=== PATIENT | female | born 1985 | race Hispanic/Latino ===

== ENCOUNTER 2020-07-25 17:10 | Emergency (ER) | payer MEDICAID ==
[2020-07-25 19:08] VITALS: BP 127/90
--- NOTE | 2020-07-25 19:39 | XRay Report ---
RIGHT ANKLE 3 VIEWS INDICATION: lateral right ankle injury, hx of previous fracture. COMPARISON: No relevant prior imaging study available. FINDINGS: No acute, displaced fracture or dislocation is seen. There is mild soft tissue swelling. IMPRESSION: 1. No acute fracture. Signer Name: Yves Marte MD Signed: 07/25/2020 7:35 PM Workstation Name: [id number]
--- NOTE | 2020-07-25 19:51 | Emergency Department Report ---
ED Lower Extremity HPI - General Chief Complaint: Extremity Injury, Lower Stated Complaint: ANKLE INJURY Time Seen by Provider: 07/25/20 19:11 Source: patient Mode of arrival: Ambulatory Limitations: No Limitations - History of Present Illness Initial Comments: Patient is a 34-year-old female presents emergency room complaints of right ankle injury that occurred just prior to arrival. Patient states that she accidentally tripped and had a inversion injury of her ankle and fell to the ground. She states that she has been able to ambulate. She states that she previously fractured this ankle couple months ago and was in a boot. She has associated right ankle pain and swelling. She denies any numbness or weakness. She has an allergy to [place], meperidine, penicillin. - Related Data Previous Rx's Medication Instructions Recorded Last Taken Type traMADoL [Ultram 50 MG tab] 50 mg PO Q6HR PRN #10 tablet 12/19/17 Unknown Rx Clindamycin [Clindamycin CAP] 300 mg PO Q8H 10 Days #30 cap 01/02/18 Unknown Rx Ibuprofen [Motrin 600 MG tab] 600 mg PO Q8H PRN #15 tablet 01/02/18 Unknown Rx Naproxen [EC-Naproxen] 500 mg PO BID PRN #20 tablet. 07/25/20 Unknown Rx Allergies Allergy/AdvReac Type Severity Reaction Status Date / Time acetaminophen [From [place]] Allergy Anaphylaxis Verified 01/02/18 21:03 hydrocodone [From [place]] Allergy Anaphylaxis Verified 01/02/18 21:03 meperidine [From Demerol] Allergy Hives Verified 01/02/18 21:03 Penicillins Allergy Hives Verified 01/02/18 21:03 ED Review of Systems ROS: Stated complaint: ANKLE INJURY Other details as noted in HPI Comment: All other systems reviewed and negative ED Past Medical Hx - Past Medical History Hx Hypertension: Yes Hx Asthma: Yes Hx COPD: Yes Additional medical history: fibromyalgia - Surgical History Additional Surgical History: hysterectomy - Social History Smoking Status: Never Smoker - Medications Home Medications: Home Medications Medication Instructions Recorded Confirmed Last Taken Type traMADoL [Ultram 50 MG tab] 50 mg PO Q6HR PRN #10 tablet 12/19/17 Unknown Rx Clindamycin [Clindamycin CAP] 300 mg PO Q8H 10 Days #30 cap 01/02/18 Unknown Rx Ibuprofen [Motrin 600 MG tab] 600 mg PO Q8H PRN #15 tablet 01/02/18 Unknown Rx Naproxen [EC-Naproxen] 500 mg PO BID PRN #20 tablet. 07/25/20 Unknown Rx ED Physical Exam - General Limitations: No Limitations General appearance: alert, in no apparent distress - Head Head exam: Present: atraumatic, normocephalic - Eye Eye exam: Present: normal appearance - ENT ENT exam: Present: mucous membranes moist - Extremities Exam Extremities exam: Present: other (mild right lateral malleolus edema with ttp to the right lateral malleolus, FROM of the RLE, no ttp of the rest of the RLE, neurovascularly intact, no obvious deformity) - Neurological Exam Neurological exam: Present: alert, oriented X3 - Psychiatric Psychiatric exam: Present: normal affect, normal mood - Skin Skin exam: Present: warm, dry, intact ED Course Vital Signs 07/25/20 19:07 Temperature 97.7 F Pulse Rate 79 Respiratory 18 Rate Blood Pressure 127/90 O2 Sat by Pulse 100 Oximetry ED Lower Extremity MDM - Radiology Data Radiology results: report reviewed Ordering Physician: SEBASTIAN SANDOVAL Date of Service: 07/25/20 Procedure(s): XR ankle 3+V RT Accession Number(s): [id number] cc: SEBASTIAN SANDOVAL Fluoro Time In Minutes: RIGHT ANKLE 3 VIEWS INDICATION: lateral right ankle injury, hx of previous fracture. COMPARISON: No relevant prior imaging study available. FINDINGS: No acute, displaced fracture or dislocation is seen. There is mild soft tissue swelling. IMPRESSION: 1. No acute fracture. Signer Name: Yves Marte MD Signed: 07/25/2020 7:35 PM Workstation Name: [id number] Transcribed By: XIOMARA Dictated By: Yves Marte MD Electronically Authenticated By: Yves Marte MD Signed Date/Time: 07/25/201934 DD/ 33 TD/TT: P - Medical Decision Making Patient is a 34-year-old female presents emergency room complaints of right ankle injury that occurred just prior to arrival. Patient states that she accidentally tripped and had a inversion injury of her ankle and fell to the ground. She states that she has been able to ambulate. She states that she previously fractured this ankle couple months ago and was in a boot. She has associated right ankle pain and swelling. She denies any numbness or weakness. She has an allergy to [place], meperidine, penicillin. Vitals are normal. On exam:mild right lateral malleolus edema with ttp to the right lateral malleolus, FROM of the RLE, no ttp of the rest of the RLE, neurovascularly intact, no obvious deformity. X-ray right ankle: 1. No acute fracture. Symptoms and examination most likely consistent with ankle sprain. Patient placed in ankle stirrup splint and given crutches by triple drum operator and reneurovascularly intact. Patient given prescription for medication. Advised patient Please take medication as prescribed as needed. May use ice for 15 minutes at a time, rest, elevation of the leg. Follow-up with orthopedic doctor. Return to emergency room for any new or worsening symptoms. Critical care attestation.: If time is entered above; I have spent that time in minutes in the direct care of this critically ill patient, excluding procedure time. ED Disposition Clinical Impression: Right ankle sprain Qualifiers: Encounter type: initial encounter Involved ligament of ankle: unspecified ligament Qualified Code(s): S93.401A - Sprain of unspecified ligament of right ankle, initial encounter Disposition: - TO HOME OR SELFCARE Is pt being admited?: No Does the pt Need Aspirin: No Condition: Stable Instructions: Ankle Sprain Additional Instructions: Please take medication as prescribed as needed. May use ice for 15 minutes at a time, rest, elevation of the leg. Follow-up with orthopedic doctor. Return to emergency room for any new or worsening symptoms. Prescriptions: Naproxen [EC-Naproxen] 500 mg PO BID PRN #[address] tablet.[address] SCHNEIDER Reason: pain Referrals: ELODIA UNGER MD [Staff Physician] - 2-3 Days [facility] [Provider Group] - 2-3 Days Time of Disposition: 19:50 Print Language: HUNGARIAN
[2020-07-25] MEDS ORDERED: IBUPROFEN 800 MG TAB PO ONE (20:14)
== END 2020-07-25 20:30 | disposition home or self-care (01) ==
LOC: ED 17:10
DX: S93.401A Sprain of unspecified ligament of right ankle, initial encounter (principal); I10 Essential (primary) hypertension; J44.9 Chronic obstructive pulmonary disease, unspecified; Z90.710 Acquired absence of both cervix and uterus; Z79.899 Other long term (current) drug therapy; Z79.1 Long term (current) use of non-steroidal anti-inflammatories (NSAID); Z79.2 Long term (current) use of antibiotics; Z88.0 Allergy status to penicillin; Z88.8 Allergy status to other drugs, medicaments and biological substances; W01.0XXA Fall on same level from slipping, tripping and stumbling without subsequent striking against object, initial encounter; Y93.89 Activity, other specified; Y92.89 Other specified places as the place of occurrence of the external cause; Y99.8 Other external cause status

== ENCOUNTER 2020-08-15 10:44 | Emergency (ER) | payer MEDICAID ==
[2020-08-15 10:51] VITALS: BP 157/99
--- NOTE | 2020-08-15 13:00 | XRay Report ---
CHEST 2 VIEWS INDICATION / CLINICAL INFORMATION: shortness of breath. COMPARISON: None available. FINDINGS: SUPPORT DEVICES: None. HEART / MEDIASTINUM: No significant abnormality. LUNGS / PLEURA: No significant pulmonary abnormality. No significant pleural effusion. No pneumothora x. ADDITIONAL FINDINGS: There is mild thoracic levoscoliosis and spondylosis. IMPRESSION: 1. No acute abnormality of the chest. 2. Additional findings as above. Signer Name: Emerson Celeste MD Signed: 08/15/2020 12:55 PM Workstation Name: [id number]
[2020-08-15 13:08] LABS: Basophils % (Auto) 0.6 % (0.0-1.8); Eosinophils # (Auto) 0.2 K/mm3 (0.0-0.4); Eosinophils % (Auto) 3.1 % (0.0-4.3); Hemoglobin 13.3 gm/dl (10.1-14.3); Lymphocytes # (Auto) 1.5 K/mm3 (1.2-5.4); Lymphocytes % (Auto) 26.3 % (13.4-35.0); Mean Corpuscular HGB Conc 33 % (30-34); Mean Corpuscular Volume 92 fl (79-97); Monocytes # (Auto) 0.4 K/mm3 (0.0-0.8); Platelet Count 189 K/mm3 (140-440); Red Blood Count 4.35 M/mm3 (3.65-5.03); Red Cell Distribution Width 14.6 % (13.2-15.2)
[2020-08-15 13:20] LABS: Alanine Aminotransferase 13 units/L (7-56); Albumin 3.4 g/dL (3.9-5); Blood Urea Nitrogen 9 mg/dL (7-17); Calcium 8.8 mg/dL (8.4-10.2); Hemolysis Index 7
[2020-08-15 13:30] LABS: BUN/Creatinine Ratio 23
[2020-08-15] MEDS ORDERED: IPRATROPIUM/ALBUTEROL SULFATE 3 ML AMPUL.NEB IH ONE (15:30)
[2020-08-15] MEDS ORDERED: predniSONE 20 MG TAB PO ONE (15:30)
[2020-08-15 16:33] LABS: INR 0.97 (0.87-1.13)
[2020-08-15 16:34] LABS: Partial Thromboplastin Time 28.8 Sec. (24.2-36.6)
--- NOTE | 2020-08-15 16:47 | Emergency Department Report ---
ED Shortness of Breath HPI - General Chief Complaint: Dyspnea/Respdistress Stated Complaint: OLLIE Time Seen by Provider: 08/15/20 15:06 Source: patient Mode of arrival: Wheelchair Limitations: No Limitations - History of Present Illness Initial Comments: This is a 34-year-old female nontoxic, well nourished in appearance, no acute signs of distress presents to the ED with c/o of SOB, wheezing, and cough x days. Patient brought by EMS and was given 1 round of albuterol which stated symptoms improve but still has some shortness of breath and wheezing. Patient denies any chest pain or chest tightness. Patient describes cough as dry nonproductive. Patient denies any hemoptysis, fever, chills, nausea, vomiting, headache, stiff neck, numbness, tingling, abdominal pain. Patient denies taking any oral contraceptives. Patient denies any recent travels or long car rides. Patient denies any recent surgeries or any sick contacts. Patient stated a llergies to acetaminophen, hydrocodone, penicillin, and meperidine. Past medical history: hypertension, asthma MD Complaint: shortness of breath, cough, "asthma attack" -: days(s) Pain Scale: 0 Improves With: nothing Worsens With: nothing Known History Of: asthma Associated Symptoms: cough - Related Data Previous Rx's Medication Instructions Recorded Last Taken Type traMADoL [Ultram 50 MG tab] 50 mg PO Q6HR PRN #10 tablet 12/19/17 Unknown Rx Clindamycin [Clindamycin CAP] 300 mg PO Q8H 10 Days #30 cap 01/02/18 Unknown Rx Ibuprofen [Motrin 600 MG tab] 600 mg PO Q8H PRN #15 tablet 01/02/18 Unknown Rx Naproxen [EC-Naproxen] 500 mg PO BID PRN #20 tablet. 07/25/20 Unknown Rx Albuterol Mdi (or & Nicu Only) 2 puff IH QID PRN #8.5 gram 08/15/20 Unknown Rx [ProAir HFA Inhaler] Prednisone [predniSONE 10 mg 10 mg PO .TAPER #1 tab.ds.pk 08/15/20 Unknown Rx (6-Day Pack, 21 Tabs)] Allergies Allergy/AdvReac Type Severity Reaction Status Date / Time acetaminophen [From [place]] Allergy Anaphylaxis Verified 01/02/18 21:03 hydrocodone [From [place]] Allergy Anaphylaxis Verified 01/02/18 21:03 meperidine [From Demerol] Allergy Hives Verified 01/02/18 21:03 Penicillins Allergy Hives Verified 01/02/18 21:03 ED Review of Systems ROS: Stated complaint: OLLIE Other details as noted in HPI Comment: All other systems reviewed and negative Constitutional: denies: chills, fever Eyes: denies: eye pain, eye discharge, vision change ENT: denies: ear pain, throat pain Respiratory: cough, shortness of breath, wheezing. denies: orthopnea, SOB with exertion, SOB at rest Cardiovascular: denies: chest pain, palpitations Endocrine: no symptoms reported Gastrointestinal: denies: abdominal pain, nausea, diarrhea Genitourinary: denies: urgency, dysuria, discharge Musculoskeletal: denies: back pain, joint swelling, arthralgia Skin: denies: rash, lesions Neurological: denies: headache, weakness, paresthesias Psychiatric: denies: anxiety, depression Hematological/Lymphatic: denies: easy bleeding, easy bruising ED Past Medical Hx - Past Medical History Previous Medical History?: Yes Hx Hypertension: Yes Hx Asthma: Yes Hx COPD: Yes Additional medical history: fibromyalgia - Surgical History Past Surgical History?: Yes Additional Surgical History: hysterectomy - Social History Smoking Status: Former Smoker Substance Use Type: None - Medications Home Medications: Home Medications Medication Instructions Recorded Confirmed Last Taken Type traMADoL [Ultram 50 MG tab] 50 mg PO Q6HR PRN #10 tablet 12/19/17 Unknown Rx Clindamycin [Clindamycin CAP] 300 mg PO Q8H 10 Days #30 cap 01/02/18 Unknown Rx Ibuprofen [Motrin 600 MG tab] 600 mg PO Q8H PRN #15 tablet 01/02/18 Unknown Rx Naproxen [EC-Naproxen] 500 mg PO BID PRN #20 tablet. 07/25/20 Unknown Rx Albuterol Mdi (or & Nicu Only) 2 puff IH QID PRN #8.5 gram 08/15/20 Unknown Rx [ProAir HFA Inhaler] Prednisone [predniSONE 10 mg 10 mg PO .TAPER #1 tab.ds.pk 08/15/20 Unknown Rx (6-Day Pack, 21 Tabs)] ED Physical Exam - General Limitations: No Limitations General appearance: alert, in no apparent distress - Head Head exam: Present: atraumatic, normocephalic - Eye Eye exam: Present: normal appearance - Neck Neck exam: Present: normal inspection, full ROM. Absent: lymphadenopathy - Respiratory Respiratory exam: Present: wheezes (Expiratory wheezing bilaterally). Absent: respiratory distress, rales, rhonchi, stridor, chest wall tenderness, accessory muscle use, decreased breath sounds, prolonged expiratory - Cardiovascular Cardiovascular Exam: Present: regular rate, normal rhythm, normal heart sounds. Absent: bradycardia, tachycardia, irregular rhythm, systolic murmur, diastolic murmur, rubs, gallop - Extremities Exam Extremities exam: Present: normal inspection, full ROM, normal capillary refill. Absent: tenderness - Back Exam Back exam: Present: normal inspection, full ROM. Absent: tenderness, CVA tenderness (R), CVA tenderness (L), muscle spasm, paraspinal tenderness, vertebral tenderness, rash noted - Neurological Exam Neurological exam: Present: alert, oriented X3, normal gait - Psychiatric Psychiatric exam: Present: normal affect, normal mood - Skin Skin exam: Present: warm, dry, intact, normal color. Absent: rash ED Course Vital Signs 08/15/20 08/15/20 10:47 15:18 Temperature 98.2 F Pulse Rate 99 H 82 Respiratory 16 Rate Blood Pressure 157/99 O2 Sat by Pulse 97 100 Oximetry - Reevaluation(s) Reevaluation #1: 08/15/20 16:49 Patient is speaking in full sentences with no signs of distress noted. ED Medical Decision Making - Lab Data Result diagrams: 08/15/20 12:22 08/15/20 12:22 Lab Results 08/15/20 08/15/20 08/15/20 Range/Units 12:22 12:22 12:22 WBC 5.8 (4.5-11.0) K/mm3 RBC 4.35 (3.65-5.03) M/mm3 Hgb 13.3 (10.1-14.3) gm/dl Hct 40.0 (30.3-42.9) % MCV 92 (79-97) fl MCH 31 (28-32) pg MCHC 33 (30-34) % RDW 14.6 (13.2-15.2) % Plt Count 189 (140-440) K/mm3 Lymph % (Auto) 26.3 (13.4-35.0) % [place] % (Auto) 6.0 (0.0-7.3) % Eos % (Auto) 3.1 (0.0-4.3) % Baso % (Auto) 0.6 (0.0-1.8) % Lymph # (Auto) 1.5 (1.2-5.4) K/mm3 [place] # (Auto) 0.4 (0.0-0.8) K/mm3 Eos # (Auto) 0.2 (0.0-0.4) K/mm3 Baso # (Auto) 0.0 (0.0-0.1) K/mm3 Seg Neutrophils % 64.0 (40.0-70.0) % Seg Neutrophils # 3.7 (1.8-7.7) K/mm3 PT (12.2-14.9) Sec. INR (0.87-1.13) APTT (24.2-36.6) Sec. Sodium 141 (137-145) mmol/L Potassium 3.6 (3.6-5.0) mmol/L Chloride 109.2 H (98-107) mmol/L Carbon Dioxide 22 (22-30) mmol/L Anion Gap 13 mmol/L BUN 9 (7-17) mg/dL Creatinine 0.4 L (0.6-1.2) mg/dL Estimated GFR > 60 ml/min BUN/Creatinine Ratio 23 % Glucose 138 H (65-100) mg/dL Calcium 8.8 (8.4-10.2) mg/dL Total Bilirubin < 0.20 (0.1-1.2) mg/dL AST 16 (5-40) units/L ALT 13 (7-56) units/L Alkaline Phosphatase 67 (35-129) units/L Troponin T (0.00-0.029) ng/mL Total Protein 5.6 L (6.3-8.2) g/dL Albumin 3.4 L (3.9-5) g/dL Albumin/Globulin Ratio 1.5 % HCG, Qual Negative (Negative) 08/15/20 08/15/20 Range/Units 15:35 15:35 WBC (4.5-11.0) K/mm3 RBC (3.65-5.03) M/mm3 Hgb (10.1-14.3) gm/dl Hct (30.3-42.9) % MCV (79-97) fl MCH (28-32) pg MCHC (30-34) % RDW (13.2-15.2) % Plt Count (140-440) K/mm3 Lymph % (Auto) (13.4-35.0) % [place] % (Auto) (0.0-7.3) % Eos % (Auto) (0.0-4.3) % Baso % (Auto) (0.0-1.8) % Lymph # (Auto) (1.2-5.4) K/mm3 [place] # (Auto) (0.0-0.8) K/mm3 Eos # (Auto) (0.0-0.4) K/mm3 Baso # (Auto) (0.0-0.1) K/mm3 Seg Neutrophils % (40.0-70.0) % Seg Neutrophils # (1.8-7.7) K/mm3 PT 13.5 (12.2-14.9) Sec. INR 0.97 (0.87-1.13) APTT 28.8 (24.2-36.6) Sec. Sodium (137-145) mmol/L Potassium (3.6-5.0) mmol/L Chloride (98-107) mmol/L Carbon Dioxide (22-30) mmol/L Anion Gap mmol/L BUN (7-17) mg/dL Creatinine (0.6-1.2) mg/dL Estimated GFR ml/min BUN/Creatinine Ratio % Glucose (65-100) mg/dL Calcium (8.4-10.2) mg/dL Total Bilirubin (0.1-1.2) mg/dL AST (5-40) units/L ALT (7-56) units/L Alkaline Phosphatase (35-129) units/L Troponin T < 0.010 (0.00-0.029) ng/mL Total Protein (6.3-8.2) g/dL Albumin (3.9-5) g/dL Albumin/Globulin Ratio % HCG, Qual (Negative) - EKG Data 08/15/20 17:33 EKG normal sinus rhythm at [address] or T wave abnormalities. Reviewed and signed by . - Radiology Data [address] [place] [address] XRay Report Signed Patient: CASSI CAMPOS MR#: [id number] : 1985 Acct:[id number] Age/Sex: 34 / F ADM Date: 08/15/20 Loc: ED Attending Dr: Ordering Physician: SHUN SETHI Date of Service: 08/15/20 Procedure(s): XR chest routine 2V Accession Number(s): [id number] cc: SHUN SETHI Fluoro Time In Minutes: CHEST 2 VIEWS INDICATION / CLINICAL INFORMATION: shortness of breath. COMPARISON: None available. FINDINGS: SUPPORT DEVICES: None. HEART / MEDIASTINUM: No significant abnormality. LUNGS / PLEURA: No significant pulmonary abnormality. No significant pleural effusion. No pneumothorax. AKILAH TIONAL FINDINGS: There is mild thoracic levoscoliosis and spondylosis. IMPRESSION: 1. No acute abnormality of the chest. 2. Additional findings as above. Signer Name: Emerson Celeste MD Signed: 08/15/2020 12:55 PM Workstation Name: [id number] Transcribed By: MN Dictated By: Emerson Celeste MD Electr onically Authenticated By: Emerson Celeste MD Signed Date/Time: 08/15/20 125 DD/ 54 TD/TT: - Medical Decision Making This is a 34-year-old female that presents with SOB with asthma exacerbation. Patient is stable and was examined by me. IWONA score 0 pints. PERC score for DVT/SVT/PE 0 points. Negative d-dimmer. EKG normal sinus rhythm with no significant changes in ST. Chest xray dictated by the radiologist. PAtient is notified of the Xray report with no questions noted. Labs within normal limits. Negative troponin. Patient did receive DuoNeb and steroids in the ED which patient the symptoms has resolved and subsided. Posttreatment and there is no wheezing upon auscultation. Patient is discharged with albuterol Patient was instructed to Follow-up with a primary care/highway landscape architect doctor in 2 days or if symptoms worsen and continue return to emergency room as soon as possible. At time of discharge, the patient does not seem toxic or ill in appearance. No acute signs of distress noted. Patient agrees to discharge treatment plan of care. No further questions noted by the patient. Critical care attestation.: If time is entered above; I have spent that time in minutes in the direct care of this critically ill patient, excluding procedure time. ED Disposition Clinical Impression: Shortness of breath, Cough Asthma exacerbation Qualifiers: Asthma severity: mild Asthma persistence: intermittent Qualified Code(s): J45.21 - Mild intermittent asthma with (acute) exacerbation Disposition: TO HOME OR SELFCARE Is pt being admited?: No Does the pt Need Aspirin: No Condition: Stable Instructions: Asthma, Adult Additional Instructions: Follow-up with a primary care/highway landscape architect doctor in 3-5 days or if symptoms worsen and continue return to emergency room as soon as possible. Prescriptions: Prednisone [predniSONE 10 mg (6-Day Pack, 21 Tabs)] 10 mg PO .TAPER #1 tab.ds.pk Albuterol Mdi (or & Nicu Only) [ProAir HFA Inhaler] 2 puff IH QID PRN #8.5 gram PRN Reason: Shortness Of Breath Referrals: PRIMARY MD ISAIAS [Primary Care Provider] - 3-5 Days BEE HALL MD [Staff Physician] - 3-5 Days [facility] [Provider Group] - 3-5 Days IVANNA OSMAN MD [Staff Physician] - 3-5 Days Forms: Work/School Release Form(ED) Time of Disposition: 17:37
--- NOTE | 2020-08-16 09:15 | Electrocardiograph Report ---
[facility] Test Date: 2020-08-15 Test Time: 17:19:31 Pat Name: CASSI CAMPOS Department: Room: Gender: F Scooping Machine Tender: GUIDO : 1985 Requested By: LAILA VELEZ Order Number: [id number] Reading MD: Andrew Velazco Measurements Intervals [place] Rate: 81 P: 58 VA: 168 QRS: 41 QRSD: 109 T: 23 QT: 395 QTc: 460 Interpretive Statements Sinus rhythm nonspecific st-t No previous ECG available for comparison Electronically Signed On 08-16-2020 9:15:12 EDT by Andrew Velazco
== END 2020-08-15 17:50 | disposition home or self-care (01) ==
LOC: ED 10:44
DX: J45.901 Unspecified asthma with (acute) exacerbation (principal); R06.02 Shortness of breath; R05 Cough; I10 Essential (primary) hypertension; Z90.710 Acquired absence of both cervix and uterus; Z87.891 Personal history of nicotine dependence; Z79.899 Other long term (current) drug therapy; Z79.1 Long term (current) use of non-steroidal anti-inflammatories (NSAID); Z79.2 Long term (current) use of antibiotics; Z88.0 Allergy status to penicillin; Z88.8 Allergy status to other drugs, medicaments and biological substances
CPT/HCPCS: 36415; 71046; 80053; 84484; 84703; 85025; 85610; 85730; 93005; 94640; 99284; J7512

== ENCOUNTER 2020-08-19 14:32 | Emergency (ER) | payer MEDICAID ==
--- NOTE | 2020-08-19 16:02 | XRay Report ---
CHEST 2 VIEWS INDICATION: chest pain. COMPARISON: 08/15/2020 FINDINGS: Support devices: None. Heart: Within normal limits. Lungs/Pleura: No acute air space or interstitial disease. No significant pleural effusion. Dextroconvex thoracic scoliosis. IMPRESSION: No acute findings. Signer Name: Yon Vásquez MD Signed: 08/19/2020 3:57 PM Workstation Name: [id number]
[2020-08-19 18:11] LABS: Basophils % (Auto) 0.3 % (0.0-1.8); Eosinophils % (Auto) 0.1 % (0.0-4.3); Hematocrit 42.6 % (30.3-42.9); Hemoglobin 13.9 gm/dl (10.1-14.3); Lymphocytes # (Auto) 1.9 K/mm3 (1.2-5.4); Lymphocytes % (Auto) 13.2 % (13.4-35.0); Mean Corpuscular HGB Conc 33 % (30-34); Mean Corpuscular Volume 92 fl (79-97); Platelet Count 231 K/mm3 (140-440); Red Blood Count 4.64 M/mm3 (3.65-5.03); Red Cell Distribution Width 15.3 % (13.2-15.2)
[2020-08-19 18:14] LABS: Alanine Aminotransferase 20 units/L (7-56); Albumin 4.3 g/dL (3.9-5); Blood Urea Nitrogen 19 mg/dL (7-17); Calcium 9.7 mg/dL (8.4-10.2); Hemolysis Index 16
[2020-08-19 18:15] LABS: BUN/Creatinine Ratio 32
[2020-08-19] MEDS ORDERED: POTASSIUM CHLORIDE ER 20 MEQ TAB PO ONE (21:52)
--- NOTE | 2020-08-19 22:15 | Emergency Department Report ---
ED Chest Pain HPI - General Chief Complaint: Chest Pain Stated Complaint: CP Time Seen by Provider: 08/19/20 21:51 Source: patient, EMS Mode of arrival: Ambulatory Limitations: No Limitations - History of Present Illness Initial Comments: Patient is a 34-year-old female who presents to the emergency department with complaints of chest pain. She reports that chest pain is intermittent and sharp. She notes that she was seen on the for similar symptoms but also had shortness of breath and wheezing at that time today she complains that she still has a cough and it is productive of greenish sputum. She also notes that earlier today she was at work when she had some epigastric or lower middle chest pain. She states sometimes this pain does feel like burning and this pain she had on yesterday it worsened after eating some spicy foods. She notes she has had some leg swelling secondary to work but denies any unilateral leg pain or leg swelling. She notes that she did have improvement when discharged on prednisone. MD Complaint: chest pain Severity scale (0 -10): 9 - Related Data Previous Rx's Medication Instructions Recorded Last Taken Type traMADoL [Ultram 50 MG tab] 50 mg PO Q6HR PRN #10 tablet 12/19/17 Unknown Rx Clindamycin [Clindamycin CAP] 300 mg PO Q8H 10 Days #30 cap 01/02/18 Unknown Rx Ibuprofen [Motrin 600 MG tab] 600 mg PO Q8H PRN #15 tablet 01/02/18 Unknown Rx Naproxen [EC-Naproxen] 500 mg PO BID PRN #20 tablet.dr 07/25/20 Unknown Rx Albuterol Mdi (or & Nicu Only) 2 puff IH QID PRN #8.5 gram 08/15/20 Unknown Rx [ProAir HFA Inhaler] Prednisone [predniSONE 10 mg 10 mg PO .TAPER #1 tab.ds.pk 08/15/20 Unknown Rx (6-Day Pack, 21 Tabs)] Doxycycline Hyclate [Doxycycline 100 mg PO Q12HR 5 Days #10 tab 08/19/20 Unknown Rx Hyclate TAB] Famotidine [Pepcid] 20 mg PO BID 30 Days #60 tablet 08/19/20 Unknown Rx Allergies Allergy/AdvReac Type Severity Reaction Status Date / Time acetaminophen [From [place]] Allergy Anaphylaxis Verified 01/02/18 21:03 hydrocodone [From [place]] Allergy Anaphylaxis Verified 01/02/18 21:03 meperidine [From [place]] Allergy Hives Verified 01/02/18 21:03 Penicillins Allergy Hives Verified 01/02/18 21:03 Heart Score - HEART Score History: Slightly suspicious EKG: Normal Age: < 45 Risk factors: > 3 risk factors or hx of atherosclerotic disease Troponin: < normal limit HEART Score: 2 - EKG Read Time Time EKG Completed: 15:18 EKG Read Time: 15:23 ED Review of Systems ROS: Stated complaint: CP Other details as noted in HPI Constitutional: denies: chills, fever Eyes: denies: eye discharge ENT: denies: dental pain Respiratory: cough. denies: shortness of breath Cardiovascular: chest pain. denies: dyspnea on exertion, syncope Endocrine: no symptoms reported Gastrointestinal: denies: abdominal pain, nausea, vomiting, diarrhea, constipation Genitourinary: denies: frequency Musculoskeletal: denies: joint swelling Skin: denies: change in color Neurological: denies: weakness, numbness Psychiatric: denies: anxiety, depression, auditory hallucinations Hematological/Lymphatic: denies: easy bleeding ED Past Medical Hx - Past Medical History Previous Medical History?: Yes Hx Hypertension: Yes Hx of Cancer: Yes (uterine, cervical) Hx Asthma: Yes Hx COPD: Yes Additional medical history: fibromyalgia - Surgical History Past Surgical History?: Yes Additional Surgical History: hysterectomy - Social History Smoking Status: Former Smoker Substance Use Type: Prescribed - Medications Home Medications: Home Medications Medication Instructions Recorded Confirmed Last Taken Type traMADoL [Ultram 50 MG tab] 50 mg PO Q6HR PRN #10 tablet 12/19/17 Unknown Rx Clindamycin [Clindamycin CAP] 300 mg PO Q8H 10 Days #30 cap 01/02/18 Unknown Rx Ibuprofen [Motrin 600 MG tab] 600 mg PO Q8H PRN #15 tablet 01/02/18 Unknown Rx Naproxen [EC-Naproxen] 500 mg PO BID PRN #20 tablet. 07/25/20 Unknown Rx Albuterol Mdi (or & Nicu Only) 2 puff IH QID PRN #8.5 gram 08/15/20 Unknown Rx [ProAir HFA Inhaler] Prednisone [predniSONE 10 mg 10 mg PO .TAPER #1 tab.ds.pk 06/30/21 Unknown Rx (6-Day Pack, 21 Tabs)] Doxycycline Hyclate [Doxycycline 100 mg PO Q12HR 5 Days #10 tab 08/19/20 Unknown Rx Hyclate TAB] Famotidine [Pepcid] 20 mg PO BID 30 Days #60 tablet 08/19/20 Unknown Rx ED Physical Exam - General Limitations: No Limitations General appearance: alert, in no apparent distress - Head Head exam: Present: atraumatic, normocephalic - Eye Eye exam: Present: normal appearance Pupils: Present: normal accommodation - ENT ENT exam: Present: normal exam - Neck Neck exam: Present: normal inspection - Respiratory Respiratory exam: Present: normal lung sounds bilaterally. Absent: respiratory distress, wheezes, rales - Cardiovascular Cardiovascular Exam: Present: regular rate, normal rhythm, normal heart sounds - GI/Abdominal GI/Abdominal exam: Present: soft. Absent: distended, tenderness - Rectal Rectal exam: Present: deferred - Extremities Exam Extremities exam: Present: normal inspection. Absent: pedal edema, calf tenderness - Back Exam Back exam: Present: normal inspection - Neurological Exam Neurological exam: Present: alert, oriented X3 - Psychiatric Psychiatric exam: Present: normal affect - Skin Skin exam: Present: warm, dry, intact ED Course Vital Signs 08/19/20 08/19/20 08/19/20 15:26 22:01 22:05 Temperature 98.4 F Pulse Rate 61 64 66 Respiratory 20 20 10 L Rate Blood Pressure 105/58 124/77 124/77 O2 Sat by Pulse 100 100 100 Oximetry - Reevaluation(s) Reevaluation #1: 08/19/20 22:37 Not currently having chest pain. ED Medical Decision Making - Lab Data Result diagrams: 08/19/20 17:38 08/19/20 17:38 - EKG Data -: EKG Interpreted by Ks Rate: bradycardia - EKG Data 08/19/20 22:18 EKG w sinus bradyardia; normal axis; rate 55 - Radiology Data Radiology results: report reviewed - Medical Decision Making 34-year-old female who presents to the emergency department with complaints of chest pain. She also has had cough productive of greenish sputum. Chest pain does not sound cardiac in nature her initial EKG is normal. She also has had negative troponins x2 here in the emergency department. Patient sounds that she may have bronchitis or pneumonia. Chest x-ray appears clear. Her potassium is noted to be low so we will replete potassium and give patient a 5-day course of doxycycline. She is instructed to return if her symptoms worsen. Critical care attestation.: If time is entered above; I have spent that time in minutes in the direct care of this critically ill patient, excluding procedure time. ED Disposition Clinical Impression: Chest pain Disposition: DC-01 TO HOME OR SELFCARE Is pt being admited?: No Does the pt Need Aspirin: No Condition: Stable Instructions: Nonspecific Chest Pain, Adult Referrals: PADMINI RODARTE [Other] - 3-5 Days Forms: Work/School Release Form(ED) Time of Disposition: 22:31
[2020-08-19 22:21] VITALS: BP 124/77
--- NOTE | 2020-08-23 11:07 | Electrocardiograph Report ---
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 Electronically Signed On 08-23-2020 11:07:02 EDT by Richie Ventura
== END 2020-08-19 22:44 | disposition home or self-care (01) ==
LOC: ED 14:32
DX: R07.9 Chest pain, unspecified (principal); I10 Essential (primary) hypertension; J44.9 Chronic obstructive pulmonary disease, unspecified; Z90.710 Acquired absence of both cervix and uterus; Z88.0 Allergy status to penicillin; Z79.899 Other long term (current) drug therapy; Z86.73 Personal history of transient ischemic attack (TIA), and cerebral infarction without residual deficits; Z88.8 Allergy status to other drugs, medicaments and biological substances; Z87.891 Personal history of nicotine dependence
CPT/HCPCS: 36415; 71046; 80053; 83690; 84484; 85025; 93005

== ENCOUNTER 2020-12-04 11:39 | Emergency (ER) | payer MEDICAID ==
--- NOTE | 2020-12-04 11:52 | Emergency Department Report ---
ED General Adult HPI - General Chief complaint: Extremity Problem,Nontraumatic Stated complaint: LEG PAIN Time Seen by Provider: 12/04/20 11:42 Source: patient Mode of arrival: Stretcher Limitations: No Limitations - History of Present Illness Initial comments: Patient presents by ambulance with a 2-week to 4-week history of dependent edema. 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 She eats salt. She states she is on her feet all the time and her legs are swollen. Patient states that she is to be on a water pill. She needs a water pill now. She also states that she needs something for her sore throat. She has had a sore throat for at least a couple of weeks. She went to another doctor and was treated with steroids. It did not go away so she would like something for that. She knows there is "still an infection somewhere." Patient also states that she needs a work note. There has been no sick contact. She has had no fevers or chills. There is no cough or congestion. Has no chest pain or shortness of breath. There is no swelling in the hands. She does have SULTANA hose, but does not use them. - Related Data Previous Rx's Medication Instructions Recorded Last Taken Type traMADoL [Ultram 50 MG tab] 50 mg PO Q6HR PRN #10 tablet 12/19/17 Unknown Rx Ibuprofen [Motrin 600 MG tab] 600 mg PO Q8H PRN #15 tablet 01/02/18 Unknown Rx Albuterol Mdi (or & Nicu Only) 2 puff IH QID PRN #8.5 gram 08/15/20 Unknown Rx [ProAir HFA Inhaler] Famotidine [Pepcid] 20 mg PO BID 30 Days #60 tablet 08/19/20 Unknown Rx Furosemide [Lasix] 40 mg PO DAILY #10 tablet 12/04/20 Unknown Rx Lidocaine Viscous 2% 15 ml MM BID PRN #10 udc 12/04/20 Unknown Rx Potassium Chloride [K-Dur] 20 meq PO BID #20 tab 12/04/20 Unknown Rx Allergies Allergy/AdvReac Type Severity Reaction Status Date / Time acetaminophen [From [place]] Allergy Anaphylaxis Verified 01/02/18 21:03 hydrocodone [From [place]] Allergy Anaphylaxis Verified 01/02/18 21:03 meperidine [From [place]] Allergy Hives Verified 01/02/18 21:03 Penicillins Allergy Hives Verified 01/02/18 21:03 ED Review of Systems ROS: Stated complaint: LEG PAIN Other details as noted in HPI Comment: All other systems reviewed and negative Constitutional: denies: fever Eyes: denies: vision change ENT: as per HPI Respiratory: denies: cough Cardiovascular: denies: chest pain Endocrine: denies: unexplained weight loss Gastrointestinal: denies: abdominal pain Genitourinary: denies: hematuria Musculoskeletal: denies: back pain Skin: denies: rash Neurological: denies: headache Hematological/Lymphatic: denies: easy bruising ED Past Medical Hx - Past Medical History Previous Medical History?: Yes Hx Hypertension: Yes Hx Asthma: Yes Hx COPD: Yes Additional medical history: fibromyalgia - Surgical History Past Surgical History?: Yes Additional Surgical History: hysterectomy - Family History Family history: hypertension - Social History Smoking Status: Former Smoker Substance Use Type: Prescribed - Medications Home Medications: Home Medications Medication Instructions Recorded Confirmed Last Taken Type traMADoL [Ultram 50 MG tab] 50 mg PO Q6HR PRN #10 tablet 12/19/17 Unknown Rx Ibuprofen [Motrin 600 MG tab] 600 mg PO Q8H PRN #15 tablet 01/02/18 Unknown Rx Albuterol Mdi (or & Nicu Only) 2 puff IH QID PRN #8.5 gram 08/15/20 Unknown Rx [ProAir HFA Inhaler] Famotidine [Pepcid] 20 mg PO BID 30 Days #60 tablet 08/19/20 Unknown Rx Furosemide [Lasix] 40 mg PO DAILY #10 tablet 12/04/20 Unknown Rx Lidocaine Viscous 2% 15 ml MM BID PRN #10 udc 12/04/20 Unknown Rx Potassium Chloride [K-Dur] 20 meq PO BID #20 tab 12/04/20 Unknown Rx ED Physical Exam - General Limitations: No Limitations, Other (Pulse ox was noted and normal) General appearance: alert, in no apparent distress, obese - Head Head exam: Present: atraumatic, normocephalic, normal inspection - Eye Eye exam: Present: normal appearance, EOMI. Absent: scleral icterus - ENT ENT exam: Present: normal exam, normal orophraynx, mucous membranes moist, normal external ear exam - Neck Neck exam: Present: normal inspection. Absent: meningismus - Respiratory Respiratory exam: Present: normal lung sounds bilaterally - Cardiovascular Cardiovascular Exam: Present: regular rate, normal rhythm - GI/Abdominal GI/Abdominal exam: Present: soft - Extremities Exam Extremities exam: Present: normal capillary refill, pedal edema (2+ bilateral pitting) - Back Exam Back exam: Present: full ROM - Neurological Exam Neurological exam: Present: alert, oriented X3, normal gait. Absent: motor sensory deficit - Psychiatric Psychiatric exam: Present: normal affect, normal mood - Skin Skin exam: Present: warm, dry ED Course Vital Signs 12/04/20 11:42 Temperature 98.6 F Pulse Rate 85 Respiratory 16 Rate Blood Pressure 146/88 [Left] O2 Sat by Pulse 95 Oximetry - Reevaluation(s) Reevaluation #1: 12/04/20 11:59 Patient was discharged. Old records reviewed. ED Medical Decision Making - Medical Decision Making Patient presents with dependent edema. This does appear to be dependent edema consistent with venous stasis and sodium intake. There is no evidence of congestive heart failure. There is no pulmonary edema. Patient does not have jaundice that would suggest liver disease. There is no history of renal disease. She does report having a sore throat, but there is no vesicle formation. There is no evidence of pus or exudate. I do not believe this represents a strep pharyngitis. She certainly does not have airway compromise suggestive of epiglottitis or retropharyngeal abscess. Critical Care Time: No Critical care attestation.: If time is entered above; I have spent that time in minutes in the direct care of this critically ill patient, excluding procedure time. ED Disposition Clinical Impression: Dependent edema, Sore throat Disposition: 01 HOME / SELF CARE / HOMELESS Is pt being admited?: No Condition: Stable Instructions: Sore Throat, Peripheral Edema Additional Instructions: Use SULTANA hose. Avoid salt. Drink water. Return for problems. Use salt water gargles for your throat. Follow-up with your regular doctor for recheck. Prescriptions: Potassium Chloride [K-Dur] 20 meq PO BID #20 tab Furosemide [Lasix] 40 mg PO DAILY #10 tablet Lidocaine Viscous 2% 15 ml MM BID PRN #10 udc PRN Reason: Pain , Severe (7-10) Referrals: PRIMARY MD ISAIAS [Referring] - 3-5 Days JESUS PICKARD MD [Staff Physician] - 3-5 Days Forms: Work/School Release Form(ED)
[2020-12-04 12:31] VITALS: BP 138/73
== END 2020-12-04 12:30 | disposition home or self-care (01) ==
LOC: ED 11:39
DX: J02.9 Acute pharyngitis, unspecified (principal); R60.0 Localized edema; I10 Essential (primary) hypertension; J44.9 Chronic obstructive pulmonary disease, unspecified; M79.7 Fibromyalgia; Z90.710 Acquired absence of both cervix and uterus; Z87.891 Personal history of nicotine dependence; Z88.0 Allergy status to penicillin; Z88.5 Allergy status to narcotic agent; Z88.6 Allergy status to analgesic agent
CPT/HCPCS: 99282; 99283

== ENCOUNTER 2020-12-10 15:48 | Emergency (ER) | payer MEDICAID ==
[2020-12-10 17:08] VITALS: BP 119/77
--- NOTE | 2020-12-10 17:11 | Emergency Department Report ---
ED General Adult HPI - General Chief complaint: Extremity Problem,Nontraumatic Stated complaint: DIZZY/EDMA Time Seen by Provider: 12/10/20 16:20 Source: patient Mode of arrival: Ambulatory Limitations: No Limitations - History of Present Illness Initial comments: 35-year-old female with a past medical history of hypertension, sinus tachycardia, stage III uterine,/cervical cancer status post complete hysterectomy and and in remission presents to the ER today with complaints of feeling dizzy and swelling in her legs. Patient states that she has been feeling dizzy since yesterday. She describes the dizziness as a spinning sensation she states that it started when she was at work standing and she felt like she was about to pass out. She states that she did not work today but she still continued to have episodes of feeling dizzy and feel like she was about to pass out. She states that she has been having swelling in both legs for about a month. She was seen here for the swelling in her legs and she states that she was diagnosed with edema and was given Lasix but she feels like the Lasix is not helping her swelling. She does admit though that the swelling improved with elevation, she is also been having diffuse lower extremity pain with the swelling. She has not followed up with her PCP since she was seen for her edema and she states that as because she does have a car but she does have an appointment December 19. She denies any chest pain, shortness of breath, nausea, vomiting, diarrhea, abdominal pain, headache, numbness, tingling, focal weakness or any additional symptoms. She denies any recent head trauma. She denies any recent travel. She denies any history of PE or DVT. MD Complaint: Dizziness/leg edema - Related Data Previous Rx's Medication Instructions Recorded Last Taken Type Ibuprofen [Motrin 600 MG tab] 600 mg PO Q8H PRN #15 tablet 01/02/18 Unknown Rx Albuterol Mdi (or & Nicu Only) 2 puff IH QID PRN #8.5 gram 08/15/20 Unknown Rx [ProAir HFA Inhaler] Famotidine [Pepcid] 20 mg PO BID 30 Days #60 tablet 08/19/20 Unknown Rx Furosemide [Lasix] 40 mg PO DAILY #10 tablet 12/04/20 Unknown Rx Lidocaine Viscous 2% 15 ml MM BID PRN #10 udc 12/04/20 Unknown Rx Meclizine [Antivert] 25 mg PO TID PRN #20 tablet 12/10/20 Unknown Rx traMADoL [Ultram 50 MG tab] 50 mg PO Q6HR PRN #10 tablet 12/10/20 Unknown Rx Allergies Allergy/AdvReac Type Severity Reaction Status Date / Time acetaminophen [From [place]] Allergy Anaphylaxis Verified 01/02/18 21:03 hydrocodone [From [place]] Allergy Anaphylaxis Verified 01/02/18 21:03 meperidine [From [place]] Allergy Hives Verified 01/02/18 21:03 Penicillins Allergy Hives Verified 01/02/18 21:03 Sulfa (Sulfonamide Allergy Hives Verified 12/10/20 16:01 Antibiotics) ED Review of Systems ROS: Stated complaint: DIZZY/EDMA Other details as noted in HPI ED Past Medical Hx - Past Medical History Hx Hypertension: Yes Hx Asthma: Yes Hx COPD: Yes Additional medical history: fibromyalgia - Surgical History Additional Surgical History: hysterectomy - Social History Smoking Status: Former Smoker Substance Use Type: Prescribed - Medications Home Medications: Home Medications Medication Instructions Recorded Confirmed Last Taken Type Ibuprofen [Motrin 600 MG tab] 600 mg PO Q8H PRN #15 tablet 01/02/18 Unknown Rx Albuterol Mdi (or & Nicu Only) 2 puff IH QID PRN #8.5 gram 08/15/20 Unknown Rx [ProAir HFA Inhaler] Famotidine [Pepcid] 20 mg PO BID 30 Days #60 tablet 08/19/20 Unknown Rx Furosemide [Lasix] 40 mg PO DAILY #10 tablet 12/04/20 Unknown Rx Lidocaine Viscous 2% 15 ml MM BID PRN #10 udc 12/04/20 Unknown Rx Meclizine [Antivert] 25 mg PO TID PRN #20 tablet 12/10/20 Unknown Rx traMADoL [Ultram 50 MG tab] 50 mg PO Q6HR PRN #10 tablet 12/10/20 Unknown Rx ED Physical Exam - General Limitations: No Limitations General appearance: alert, in no apparent distress - Head Head exam: Present: atraumatic, normocephalic, normal inspection - Eye Eye exam: Present: normal appearance, PERRL, EOMI. Absent: nystagmus Pupils: Present: normal accommodation - Neck Neck exam: Present: normal inspection, full ROM - Respiratory Respiratory exam: Present: normal lung sounds bilaterally. Absent: respiratory distress, wheezes, rales, rhonchi - Cardiovascular Cardiovascular Exam: Present: regular rate, normal rhythm, normal heart sounds - Extremities Exam Extremities exam: Present: tenderness (diffuse ttp bilateral lower leg including calf ), pedal edema (mild non pitting edema bilateral lower leg/ankle and foot) - Neurological Exam Neurological exam: Present: alert, oriented X3, CN II-XII intact, normal gait - Psychiatric Psychiatric exam: Present: normal affect, normal mood - Skin Skin exam: Present: intact ED Course Vital Signs 12/10/20 12/10/20 12/10/20 16:01 17:05 17:07 Temperature 98.7 F 97.5 F L Pulse Rate 94 H 71 Pulse Rate [ 71 Lying] Respiratory 18 14 Rate Blood Pressure 153/96 Blood Pressure 119/77 [Left] O2 Sat by Pulse 98 99 Oximetry 12/10/20 17:08 Temperature 97.5 F L Pulse Rate 71 Pulse Rate [ Lying] Respiratory 14 Rate Blood Pressure 119/77 Blood Pressure [Left] O2 Sat by Pulse 99 Oximetry ED Medical Decision Making - Lab Data Result diagrams: 12/10/20 17:36 12/10/20 17:36 - EKG Data EKG shows normal: sinus rhythm Rate: normal (69) - EKG Data Interpretation: normal EKG - Medical Decision Making All labs reviewed-patient was mildly hypokalemic but otherwise all labs are unremarkable including a normal troponin and a negative D-dimer. Her EKG showed normal sinus rhythm with a heart rate of 69 but otherwise no STEMI, ischemic changes or significant dysrhythmias. Patient has been observed talking on the phone majority of the time time she has been here in the ER he has also been tolerating p.o. by eating chips and drinking fluids. She is not toxic or ill- appearing. She is mentally stable and neurologically intact and she has a normal gait. Her orthostatics vital signs were negative. The history, exam, diagnostic testing and the patient's current condition does not suggest meningitis, stroke, sepsis, subarachnoid hemorrhage, intracranial bleed, encephalitis, ACS/AR, PE or other significant pathology that would warrant f urther testing, continued ED treatment, admission, neurological consultation or other specialist evaluation at this point. Discussed all lab results with patient. Patient requesting something stronger than Lasix for lower extremity swelling, but informed patient that there are a lot of side effects with Lasix, including worsening her hypokalemia and he can also drop her blood pressure and can cause her to be dizzy. At this time recommend just elevate her leg as often as possible watching her salt intake. She will be given prescription for meclizine, at the denies could be related BPV. Informed patient that she needs to follow-up with her PCP for further evaluation but she understands that if her symptoms worsens in any way to return to the ER. Critical care attestation.: If time is entered above; I have spent that time in minutes in the direct care of this critically ill patient, excluding procedure time. ED Disposition Clinical Impression: Dependent edema, Vertigo Disposition: HOME / SELF CARE / HOMELESS Is pt being admited?: No Does the pt Need Aspirin: No Condition: Stable Instructions: Dizziness, Marn-ah-Ghpm, Peripheral Edema Additional Instructions: Since the Lasix is not helping I recommend that you stop the Lasix, and continue to rest elevate your leg as often as possible and keep your appointment with your PCP for further evaluation. Take the meclizine as prescribed to help with dizziness. Continue to drink lots of fluids to help maintain your hydration and also recommend decreasing your salt intake. Again keep your appointment with your PCP for next Thursday. Return to the ER if your symptoms changes or worsens in any way. Prescriptions: Meclizine [Antivert] 25 mg PO TID PRN #20 tablet PRN Reason: Vertigo traMADoL [Ultram 50 MG tab] 50 mg PO Q6HR PRN #10 tablet PRN Reason: Pain Referrals: PRIMARY CARE,MD [Primary Care Provider] - 3-5 Days Forms: Work/School Release Form(ED) Time of Disposition: 19:32
[2020-12-10 18:18] LABS: Basophils % (Auto) 0.3 % (0.0-1.8); Eosinophils # (Auto) 0.2 K/mm3 (0.0-0.4); Eosinophils % (Auto) 2.8 % (0.0-4.3); Hematocrit 37.8 % (30.3-42.9); Hemoglobin 12.5 gm/dl (10.1-14.3); Lymphocytes # (Auto) 1.9 K/mm3 (1.2-5.4); Lymphocytes % (Auto) 29.3 % (13.4-35.0); Mean Corpuscular HGB Conc 33 % (30-34); Mean Corpuscular Volume 93 fl (79-97); Monocytes # (Auto) 0.5 K/mm3 (0.0-0.8); Monocytes % (Auto) 8.5 % (0.0-7.3); Platelet Count 167 K/mm3 (140-440); Red Blood Count 4.07 M/mm3 (3.65-5.03); Red Cell Distribution Width 13.4 % (13.2-15.2)
[2020-12-10 18:44] LABS: Alanine Aminotransferase 17 units/L (7-56); Albumin 3.6 g/dL (3.9-5); Blood Urea Nitrogen 16 mg/dL (7-17); Calcium 8.9 mg/dL (8.4-10.2); Hemolysis Index 12
[2020-12-10 18:50] LABS: BUN/Creatinine Ratio 27
[2020-12-10] MEDS ORDERED: POTASSIUM CHLORIDE ER 20 MEQ TAB PO ONE (19:27)
[2020-12-10] MEDS ORDERED: traMADol 50 MG TAB PO ONE (19:37)
--- NOTE | 2020-12-11 19:10 | Electrocardiograph Report ---
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
== END 2020-12-10 20:01 | disposition home or self-care (01) ==
LOC: ED 15:48
DX: R60.0 Localized edema (principal); R42 Dizziness and giddiness; I10 Essential (primary) hypertension; J44.9 Chronic obstructive pulmonary disease, unspecified; M79.7 Fibromyalgia; Z90.710 Acquired absence of both cervix and uterus; Z88.0 Allergy status to penicillin; Z88.2 Allergy status to sulfonamides; Z88.8 Allergy status to other drugs, medicaments and biological substances; Z88.5 Allergy status to narcotic agent; Z79.899 Other long term (current) drug therapy
CPT/HCPCS: 36415; 80053; 83690; 83735; 84484; 85025; 85379; 93005; 99283

== ENCOUNTER 2020-12-17 13:15 | Emergency (ER) | payer MEDICAID ==
[2020-12-17] MEDS ORDERED: SODIUM CHLORIDE 0.9% 1000 ML 1,000 ML IV ONE (18:37)
[2020-12-17] MEDS ORDERED: MORPHINE 4 MG/1 ML INJ IV ONE (18:37)
[2020-12-17] MEDS ORDERED: ONDANSETRON 4 MG/2 ML INJ IV ONE ×2 (18:37→23:54)
[2020-12-17] MEDS ORDERED: MORPHINE 2 MG/1 ML INJ IV ONE ×4 (18:43→23:54)
--- NOTE | 2020-12-17 19:37 | Emergency Department Report ---
ED Abdominal Pain HPI - General Chief Complaint: Abdominal Pain Stated Complaint: NAUSEA Time Seen by Provider: 12/17/20 18:29 Source: patient Mode of arrival: Ambulatory Limitations: No Limitations - History of Present Illness Initial Comments: 35-year-old female with a past medical history of fibromyalgia, COPD, asthma, recent diagnosis vertical and leg edema presents to the hospital with complaints of lower abdominal pain, nausea, vomiting, and diarrhea since yesterday. Patient reports 15 episodes of vomiting, 10-15 episodes diarrhea. Denies me jame, hematochezia, or hematemesis. T-max 100.1. Similar symptoms in the past when she had diverticulitis. History of cervical cancer currently in remission status post hysterectomy (ovaries remain). Patient recently in the ED diagnosed with edema started on Lasix and potassium on December 04 then returned on December 10 and received diagnosis of vertigo prescribed tramadol as well. Patient is due to see her PMD in 2 days the patient anticipates missing this appointment Severity scale (0 -10): 10 - Related Data Previous Rx's Medication Instructions Recorded Last Taken Type Ibuprofen [Motrin 600 MG tab] 600 mg PO Q8H PRN #15 tablet 01/02/18 Unknown Rx Albuterol Mdi (or & Nicu Only) 2 puff IH QID PRN #8.5 gram 08/15/20 Unknown Rx [ProAir HFA Inhaler] Famotidine [Pepcid] 20 mg PO BID 30 Days #60 tablet 08/19/20 Unknown Rx Furosemide [Lasix] 40 mg PO DAILY #10 tablet 12/04/20 Unknown Rx Lidocaine Viscous 2% 15 ml MM BID PRN #10 udc 12/04/20 Unknown Rx Meclizine [Antivert] 25 mg PO TID PRN #20 tablet 12/10/20 12/17/20 Rx 25 mg traMADoL [Ultram 50 MG tab] 50 mg PO Q6HR PRN #10 tablet 12/10/20 Unknown Rx Ondansetron [Zofran Odt] 4 mg PO Q8HR #20 tab.rapdis 12/18/20 Unknown Rx traMADoL [Ultram 50 MG tab] 50 mg PO Q6HR PRN #10 tablet 12/18/20 Unknown Rx Allergies Allergy/AdvReac Type Severity Reaction Status Date / Time acetaminophen [From [place]] Allergy Anaphylaxis Verified 12/17/20 17:43 hydrocodone [From [place]] Allergy Anaphylaxis Verified 12/17/20 17:43 meperidine [From Demerol] Allergy Hives Verified 12/17/20 17:43 Penicillins Allergy Hives Verified 12/17/20 17:43 Sulfa (Sulfonamide Allergy Hives Verified 12/17/20 17:43 Antibiotics) ED Review of Systems ROS: Stated complaint: NAUSEA Other details as noted in HPI Comment: All other systems reviewed and negative ED Past Medical Hx - Past Medical History Hx Hypertension: Yes Hx Asthma: Yes Hx COPD: Yes Additional medical history: fibromyalgia. vertigo - Surgical History Additional Surgical History: hysterectomy - Social History Smoking Status: Current Every Day Smoker - Medications Home Medications: Home Medications Medication Instructions Recorded Confirmed Last Taken Type Ibuprofen [Motrin 600 MG tab] 600 mg PO Q8H PRN #15 tablet 01/02/18 12/17/20 Unknown Rx Albuterol Mdi (or & Nicu Only) 2 puff IH QID PRN #8.5 gram 08/15/20 12/17/20 Unknown Rx [ProAir HFA Inhaler] Famotidine [Pepcid] 20 mg PO BID 30 Days #60 tablet 08/19/20 12/17/20 Unknown Rx Furosemide [Lasix] 40 mg PO DAILY #10 tablet 12/04/20 12/17/20 Unknown Rx Lidocaine Viscous 2% 15 ml MM BID PRN #10 udc 12/04/20 12/17/20 Unknown Rx Meclizine [Antivert] 25 mg PO TID PRN #20 tablet 12/10/20 12/17/20 12/17/20 Rx 25 mg traMADoL [Ultram 50 MG tab] 50 mg PO Q6HR PRN #10 tablet 12/10/20 12/17/20 Unknown Rx Ondansetron [Zofran Odt] 4 mg PO Q8HR #20 tab.rapdis 12/18/20 Unknown Rx traMADoL [Ultram 50 MG tab] 50 mg PO Q6HR PRN #10 tablet 12/18/20 Unknown Rx ED Physical Exam - General Limitations: No Limitations - Other Other exam information: General: No acute distress Head: Atraumatic Eyes: normal appearance ENT: Moist mucous membranes Neck: Normal appearance, no midline tenderness Chest: Clear to auscultation bilaterally CV: Regular rate and rhythm Abdomen: Soft, normal bowel sounds, lower abdominal tenderness, nondistended, no rebound or guarding Back: Normal inspection Extremity: Normal inspection, full range of motion Neuro: Alert O x 3, no facial asymmetry, speech clear, no gross motor sensory deficit Psych: Appropriate behavior Skin: No rash ED Course Vital Signs 12/17/20 12/17/20 12/17/20 13:22 17:36 17:46 Temperature 98.3 F 98.9 F Pulse Rate 92 H 69 Respiratory 16 16 Rate Blood Pressure 122/85 132/86 [Right] O2 Sat by Pulse 98 97 99 Oximetry 12/17/20 22:10 Temperature 97.7 F Pulse Rate 72 Respiratory 16 Rate Blood Pressure 137/76 [Right] O2 Sat by Pulse 99 Oximetry - Reevaluation(s) Reevaluation #1: 12/18/20 00:02 Patient tolerated p.o. intake after treatment. Complains of persistent pain but resolved nausea. Requesting additional pain meds before she is discharged ED Medical Decision Making - Lab Data Result diagrams: 12/17/20 19:30 12/17/20 19:30 Lab Results 12/17/20 12/17/20 12/17/20 Range/Units 19:30 19:30 22:12 WBC 8.2 (4.5-11.0) K/mm3 RBC 4.33 (3.65-5.03) M/mm3 Hgb 13.6 (10.1-14.3) gm/dl Hct 40.7 (30.3-42.9) % MCV 94 (79-97) fl MCH 32 (28-32) pg MCHC 33 (30-34) % RDW 13.3 (13.2-15.2) % Plt Count 240 (140-440) K/mm3 Lymph % (Auto) 29.2 (13.4-35.0) % [place] % (Auto) 10.9 H (0.0-7.3) % Eos % (Auto) 2.8 (0.0-4.3) % Baso % (Auto) 0.5 (0.0-1.8) % Lymph # (Auto) 2.4 (1.2-5.4) K/mm3 [place]man # (Auto) 0.9 H (0.0-0.8) K/mm3 Eos # (Auto) 0.2 (0.0-0.4) K/mm3 Baso # (Auto) 0.0 (0.0-0.1) K/mm3 Seg Neutrophils % 56.6 (40.0-70.0) % Seg Neutrophils # 4.6 (1.8-7.7) K/mm3 Sodium 140 (137-145) mmol/L Potassium 4.3 (3.6-5.0) mmol/L Chloride 101.2 (98-107) mmol/L Carbon Dioxide 25 (22-30) mmol/L Anion Gap 18 mmol/L BUN 15 (7-17) mg/dL Creatinine 0.5 L (0.6-1.2) mg/dL Estimated GFR > 60 ml/min BUN/Creatinine Ratio 30 % Glucose 82 (65-100) mg/dL Calcium 9.6 (8.4-10.2) mg/dL Magnesium 2.00 (1.7-2.3) mg/dL Total Bilirubin 0.20 (0.1-1.2) mg/dL AST 24 (5-40) units/L ALT 17 (7-56) units/L Alkaline Phosphatase 106 (35-129) units/L Total Protein 7.2 (6.3-8.2) g/dL Albumin 4.5 (3.9-5) g/dL Albumin/Globulin Ratio 1.7 % Lipase 48 (13-60) units/L Urine Color Straw (Yellow) Urine Turbidity Clear (Clear) Urine pH 6.0 (5.0-7.0) Ur Specific [place] 1.054 H (1.003-1.030) Urine Protein <15 mg/dl (Negative) mg/dL Urine Glucose (UA) Neg (Negative) mg/dL Urine Ketones Neg (Negative) mg/dL Urine Blood Neg (Negative) Urine Nitrite Neg (Negative) Ur Reducing Substances Not Reportable Urine Bilirubin Neg (Negative) Urine Ictotest Not Reportable Urine Urobilinogen < 2.0 (<2.0) mg/dL Ur Leukocyte Esterase Neg (Negative) Urine WBC (Auto) 2.0 (0.0-6.0) /HPF Urine RBC (Auto) 1.0 (0.0-6.0) /HPF U Epithel Cells (Auto) 2.0 (0-13.0) /HPF - Medical Decision Making 35-year-old female presents to the hospital planing abdominal pain, nausea, vomiting, and diarrhea. She reports a fever at home. No signs of acute infection on labs or CT. Patient states she has an appointment scheduled with her primary care doctor in [place] on December 19 however she will be unlikely to make it there due to lack of transportation. Patient encouraged to follow-up with her doctor since she has had multiple frequent ER visits here. She will be discharged with nausea medication and pain medication Critical Care Time: No Critical care attestation.: If time is entered above; I have spent that time in minutes in the direct care of this critically ill patient, excluding procedure time. ED Disposition Clinical Impression: Nausea vomiting and diarrhea, Acute gastroenteritis Disposition: HOME / SELF CARE / HOMELESS Is pt being admited?: No Does the pt Need Aspirin: No Condition: Stable Instructions: Abdominal Pain (ED), Viral Gastroenteritis, Adult, [id number] Additional Instructions: Take the medication as prescribed. Follow-up with your doctor or doctor/clinic provided. Return if symptoms worsen as indicated by your discharge instructions. Prescriptions: traMADoL [Ultram 50 MG tab] 50 mg PO Q6HR PRN #10 tablet PRN Reason: Pain Ondansetron [Zofran Odt] 4 mg PO Q8HR #20 tab.rapdis Referrals: PRIMARY CARE, [Primary Care Provider] - 3-5 Days Forms: Work/School Release Form(ED) Time of Disposition: 00:07
[2020-12-17 19:55] LABS: Basophils % (Auto) 0.5 % (0.0-1.8); Eosinophils # (Auto) 0.2 K/mm3 (0.0-0.4); Eosinophils % (Auto) 2.8 % (0.0-4.3); Hematocrit 40.7 % (30.3-42.9); Hemoglobin 13.6 gm/dl (10.1-14.3); Lymphocytes # (Auto) 2.4 K/mm3 (1.2-5.4); Lymphocytes % (Auto) 29.2 % (13.4-35.0); Mean Corpuscular HGB Conc 33 % (30-34); Mean Corpuscular Volume 94 fl (79-97); Monocytes # (Auto) 0.9 K/mm3 (0.0-0.8); Monocytes % (Auto) 10.9 % (0.0-7.3); Platelet Count 240 K/mm3 (140-440); Red Blood Count 4.33 M/mm3 (3.65-5.03); Red Cell Distribution Width 13.3 % (13.2-15.2)
[2020-12-17 20:48] LABS: Alanine Aminotransferase 17 units/L (7-56); Albumin 4.5 g/dL (3.9-5); Blood Urea Nitrogen 15 mg/dL (7-17); Calcium 9.6 mg/dL (8.4-10.2); Hemolysis Index 119
[2020-12-17 20:52] LABS: BUN/Creatinine Ratio 30
--- NOTE | 2020-12-17 22:11 | Cat Scan Report ---
CT ABDOMEN AND PELVIS WITH CONTRAST INDICATION / CLINICAL INFORMATION: lower abd pain, n,v,d fever at home, hx cervical cancer. TECHNIQUE: Axial CT images were obtained through the abdomen and pelvis after 100 mL Omnipaque [address] scans at this location are performed using CT dose reduction for ALARA by means of automated exposure control. COMPARISON: None available. FINDINGS: LOWER CHEST: No significant abnormality. LIVER: No significant abnormality. GALLBLADDER: No significant abnormality. BILE DUCTS: No significant abnormality. PANCREAS: No significant abnormality. SPLEEN: No significant abnormality. ADRENALS: Multiple renal hypodensities are too small to characterize but likely represent cysts. Ther e are punctate nonobstructing stones in the lower pole. LEFT KIDNEY / URETER: Multiple renal hypodensities are too small to characterize but likely represent cysts. STOMACH / SMALL BOWEL: No significant abnormality. COLON: No significant abnormality. APPENDIX: No significant abnormality. PERITONEUM: No free fluid. No free air. No fluid collection. LYMPH NODES: No significant adenopathy. AORTA / ARTERIES: No significant abnormality. IVC / VEINS: No significant abnormality. URINARY BLADDER: No significant abnormality. REPRODUCTIVE ORGANS: Uterus is absent. 1.5 cm left ovarian cyst/follicle. Mild stranding around the v aginal cuff is nonspecific. ADDITIONAL FINDINGS: None. SKELETAL SYSTEM: No significant abnormality. IMPRESSION: 1. Mild stranding around the vaginal cuff is nonspecific. No suspicious adenopathy. 2. Right nephrolithiasis without obstruction. Signer Name: Dustin Escobar MD Signed: 12/17/2020 10:07 PM Workstation Name: [id number]
[2020-12-17 22:12] VITALS: BP 137/76
[2020-12-17 22:49] LABS: Bilirubin,Urine NEG (Negative); Blood,Urine NEG (Negative); Color,Urine Straw (Yellow); Protein,Urine <15 mg/dL mg/dL (Negative); Urobilinogen,Urine < 2.0 mg/dL (<2.0)
[2020-12-17] MEDS ORDERED: KETOROLAC 30 MG/1 ML INJ IV ONE (23:54)
== END 2020-12-18 01:11 | disposition home or self-care (01) ==
LOC: ED 13:15
DX: K52.9 Noninfective gastroenteritis and colitis, unspecified (principal); I10 Essential (primary) hypertension; J44.9 Chronic obstructive pulmonary disease, unspecified; F17.200 Nicotine dependence, unspecified, uncomplicated; Z88.1 Allergy status to other antibiotic agents; Z88.0 Allergy status to penicillin; Z88.2 Allergy status to sulfonamides; Z88.8 Allergy status to other drugs, medicaments and biological substances
CPT/HCPCS: 36415; 74177; 80053; 81001; 83690; 83735; 85025; 96361; 96374; 96375; 96376; 99284; J1885; J2270; J2405; J7030; Q9967

== ENCOUNTER 2021-01-27 12:59 | Emergency (ER) | payer MEDICAID ==
--- NOTE | 2021-01-27 15:27 | Emergency Department Report ---
ED General Adult HPI - General Chief complaint: Dental/Oral Stated complaint: BACK PAIN Time Seen by Provider: 01/27/21 15:14 Source: patient Mode of arrival: Ambulatory Limitations: No Limitations - History of Present Illness Initial comments: 35-year-old female with a past medical history of fibromyalgia, vertigo, and bronchitis presents to the ER today with complaints of right lower jaw pain and swelling. She states that she noticed it yesterday. She states that she is not sure if it is coming from her tooth. She denies any injury to her jaw. She reports no trismus, drooling, difficulty swallowing or breathing, facial redness, fever or chills. Patient also requesting refills on her vertigo medication. She states that she has been out for couple weeks. Patient states that she "just moved to the area and therefore does not have a local dentist or primary care doctor. MD Complaint: Right lower jaw pain; refill on vertigo medication -: days(s) (1) - Related Data Previous Rx's Medication Instructions Recorded Last Taken Type Ibuprofen [Motrin 600 MG tab] 600 mg PO Q8H PRN #15 tablet 01/02/18 Unknown Rx Albuterol Mdi (or & Nicu Only) 2 puff IH QID PRN #8.5 gram 08/15/20 Unknown Rx [ProAir HFA Inhaler] Famotidine [Pepcid] 20 mg PO BID 30 Days #60 tablet 08/19/20 Unknown Rx Furosemide [Lasix] 40 mg PO DAILY #10 tablet 12/04/20 Unknown Rx Lidocaine Viscous 2% 15 ml MM BID PRN #10 udc 12/04/20 Unknown Rx Clindamycin [Clindamycin CAP] 300 mg PO Q6H #40 capsule 01/27/21 Unknown Rx Ketorolac [Toradol] 10 mg PO Q6H PRN #20 tablet 01/27/21 Unknown Rx Meclizine [Antivert] 25 mg PO TID PRN #20 tablet 01/27/21 Unknown Rx Allergies Allergy/AdvReac Type Severity Reaction Status Date / Time acetaminophen [From [place]] Allergy Anaphylaxis Verified 12/17/20 17:43 hydrocodone [From [place]] Allergy Anaphylaxis Verified 12/17/20 17:43 meperidine [From [place]ol] Allergy Hives Verified 12/17/20 17:43 Penicillins Allergy Hives Verified 12/17/20 17:43 Sulfa (Sulfonamide Allergy Hives Verified 12/17/20 17:43 Antibiotics) flu vaccine Allergy Hives Uncoded 01/27/21 13:48 ED Review of Systems ROS: Stated complaint: BACK PAIN Other details as noted in HPI Comment: All other systems reviewed and negative Constitutional: denies: chills, fever Eyes: denies: eye pain, eye discharge, vision change ENT: dental pain, other (right lower jaw swelling and pain) Respiratory: denies: cough, shortness of breath, SOB with exertion, SOB at rest, wheezing Cardiovascular: denies: chest pain, palpitations, dyspnea on exertion, edema, syncope, paroxysmal nocturnal dyspnea Gastrointestinal: denies: abdominal pain, nausea, diarrhea Genitourinary: denies: urgency, dysuria, frequency, hematuria, discharge, abnormal menses, dyspareunia, other Musculoskeletal: denies: back pain, joint swelling, arthralgia Skin: denies: rash, lesions, change in color, change in hair/nails, pruritus Neurological: vertigo. denies: headache, numbness, paresthesias, confusion Psychiatric: denies: anxiety, depression, auditory hallucinations, visual hallucinations, homicidal thoughts, suicidal thoughts Hematological/Lymphatic: denies: easy bleeding, easy bruising, swollen glands ED Past Medical Hx - Past Medical History Previous Medical History?: Yes Hx Hypertension: Yes Hx of Cancer: Yes (stage 3 uterine, colon, cervix) Hx Psychiatric Treatment: Yes (bipolar) Hx Asthma: Yes Hx COPD: Yes Additional medical history: fibromyalgia. vertigo - Surgical History Past Surgical History?: Yes Additional Surgical History: hysterectomy - Social History Smoking Status: Current Every Day Smoker - Medications Home Medications: Home Medications Medication Instructions Recorded Confirmed Last Taken Type Ibuprofen [Motrin 600 MG tab] 600 mg PO Q8H PRN #15 tablet 01/02/18 12/17/20 Unknown Rx Albuterol Mdi (or & Nicu Only) 2 puff IH QID PRN #8.5 gram 08/15/20 12/17/20 Unknown Rx [ProAir HFA Inhaler] Famotidine [Pepcid] 20 mg PO BID 30 Days #60 tablet 08/19/20 12/17/20 Unknown Rx Furosemide [Lasix] 40 mg PO DAILY #10 tablet 12/04/20 12/17/20 Unknown Rx Lidocaine Viscous 2% 15 ml MM BID PRN #10 udc 12/04/20 12/17/20 Unknown Rx Clindamycin [Clindamycin CAP] 300 mg PO Q6H #40 capsule 01/27/21 Unknown Rx Ketorolac [Toradol] 10 mg PO Q6H PRN #20 tablet 01/27/21 Unknown Rx Meclizine [Antivert] 25 mg PO TID PRN #20 tablet 01/27/21 Unknown Rx ED Physical Exam - General Limitations: No Limitations General appearance: alert, in no apparent distress - Head Head exam: Present: atraumatic, normocephalic, normal inspection - Eye Eye exam: Present: normal appearance, PERRL, EOMI Pupils: Present: normal accommodation - ENT ENT exam: Present: normal exam, normal orophraynx, mucous membranes moist - Expanded ENT Exam Expanded Mouth exam: Present: normal external inspection 1 - Other (Tenderness to palpation to the gum at the base of the tooth. No apparent dental decay or deformity; mild swelling to the right lower jaw but otherwise no facial redness.) Throat exam: Positive: normal inspection - Neck Neck exam: Present: normal inspection, full ROM. Absent: meningismus, lymphadenopathy - Respiratory Respiratory exam: Present: normal lung sounds bilaterally. Absent: respiratory distress, wheezes, rales, rhonchi - Cardiovascular Cardiovascular Exam: Present: regular rate, normal rhythm, normal heart sounds - Neurological Exam Neurological exam: Present: alert, oriented X3, CN II-XII intact, normal gait - Psychiatric Psychiatric exam: Present: normal affect, normal mood - Skin Skin exam: Present: intact ED Course Vital Signs 01/27/21 13:48 Temperature 97.9 F Pulse Rate 74 Respiratory 18 Rate Blood Pressure 127/98 O2 Sat by Pulse 100 Oximetry ED Medical Decision Making - Medical Decision Making Patient exam concerning for possible periapical abscess to right lower molar. She has no facial cellulitis or any significant facial swelling. Her airway is patent. She is controlling her secretions well. She has no trismus. Patient voice is normal. Patient is neurologically intact with a normal gait. She is not toxic or ill-appearing. Discussed suspected diagnosis and treatment plan with patient. She will be given referral to local dental clinic as well as her PCP. Patient was stable at time of discharge. Critical care attestation.: If time is entered above; I have spent that time in minutes in the direct care of this critically ill patient, excluding procedure time. ED Disposition Clinical Impression: Periapical abscess, Medication refill, History of vertigo Disposition: HOME / SELF CARE / HOMELESS Is pt being admited?: No Does the pt Need Aspirin: No Condition: Stable Instructions: Vertigo, [id number], Dental Abscess Additional Instructions: I recommend that you take the clindamycin as prescribed to completion. Take the Toradol as prescribed to help with any pain. Take your meclizine and take it as needed for your vertigo. Follow-up with the dentist and the PCP listed on your discharge instructions and given on the dental list. Return to the ER if your symptoms changes or worsens in any way. Prescriptions: Meclizine [Antivert] 25 mg PO TID PRN #20 tablet PRN Reason: Vertigo Clindamycin [Clindamycin CAP] 300 mg PO Q6H #40 capsule Ketorolac [Toradol] 10 mg PO Q6H PRN #20 tablet PRN Reason: Pain Referrals: [facility] [Provider Group] - 3-5 Days Forms: Work/School Release Form(ED) Time of Disposition: 15:28
[2021-01-27 16:11] VITALS: BP 130/86
== END 2021-01-27 16:10 | disposition home or self-care (01) ==
LOC: ED 12:59
DX: L02.215 Cutaneous abscess of perineum (principal); Z86.69 Personal history of other diseases of the nervous system and sense organs; Z76.0 Encounter for issue of repeat prescription; Z88.6 Allergy status to analgesic agent; Z88.0 Allergy status to penicillin; Z88.2 Allergy status to sulfonamides; Z88.7 Allergy status to serum and vaccine
CPT/HCPCS: 99282

== ENCOUNTER 2021-02-09 21:28 | Emergency (ER) | payer MEDICAID ==
[2021-02-09 21:37] VITALS: BP 134/88
--- NOTE | 2021-02-09 23:45 | Emergency Department Report ---
ED General Adult HPI - General Chief complaint: Dizziness Stated complaint: VERTIGO Source: EMS Mode of arrival: Stretcher Limitations: No Limitations - History of Present Illness Initial comments: Patient is a 35-year-old female with a history of hypertension, bipolar disorder, asthma, fibromyalgia, COPD and vertigo who presented to the ED with complaint of persistent lightheadedness and dizziness, elevated blood pressure for the last 2 days. Patient states that she is currently on metoprolol 25 mg daily for her chronic tachycardia. Patient believes that her blood pressure has been elevated although she did not check it at home. Patient denies chest pain, shortness of breath, syncope, change in vision, nausea and vomiting, cough, fever, chills, sore throat, nasal and sinus congestion or diarrhea and abdominal pain. MD Complaint: Lightheadedness, elevated BP, anxious -: Sudden, days(s) (2) Location: head Radiation: non-radiation Severity scale (0 -10): 0 Consistency: intermittent Improves with: none Worsens with: none Associated Symptoms: denies other symptoms, headaches. denies: confusion, chest pain, cough, diaphoresis, fever/chills, loss of appetite, malaise, nausea/vomiting, rash, seizure, shortness of breath, syncope, weakness Treatments Prior to Arrival: none - Related Data Previous Rx's Medication Instructions Recorded Last Taken Type Ibuprofen [Motrin 600 MG tab] 600 mg PO Q8H PRN #15 tablet 01/02/18 Unknown Rx Albuterol Mdi (or & Nicu Only) 2 puff IH QID PRN #8.5 gram 08/15/20 Unknown Rx [ProAir HFA Inhaler] Famotidine [Pepcid] 20 mg PO BID 30 Days #60 tablet 08/19/20 Unknown Rx Furosemide [Lasix] 40 mg PO DAILY #10 tablet 12/04/20 Unknown Rx Lidocaine Viscous 2% 15 ml MM BID PRN #10 udc 12/04/20 Unknown Rx Clindamycin [Clindamycin CAP] 300 mg PO Q6H #40 capsule 01/27/21 Unknown Rx Ketorolac [Toradol] 10 mg PO Q6H PRN #20 tablet 01/27/21 Unknown Rx Meclizine [Antivert] 25 mg PO TID PRN #20 tablet 01/27/21 Unknown Rx Meclizine [Antivert] 25 mg PO TID PRN #30 tablet 02/09/21 Unknown Rx hydrOXYzine PAMOATE [Vistaril] 50 mg PO Q12HR PRN #30 capsule 02/09/21 Unknown Rx Allergies Allergy/AdvReac Type Severity Reaction Status Date / Time acetaminophen [From [place]] Allergy Anaphylaxis Verified 12/17/20 17:43 hydrocodone [From [place]] Allergy Anaphylaxis Verified 12/17/20 17:43 meperidine [From [place]] Allergy Hives Verified 12/17/20 17:43 Penicillins Allergy Hives Verified 12/17/20 17:43 Sulfa (Sulfonamide Allergy Hives Verified 12/17/20 17:43 Antibiotics) flu vaccine Allergy Hives Uncoded 01/27/21 13:48 ED Review of Systems ROS: Stated complaint: VERTIGO Other details as noted in HPI Constitutional: denies: chills, fever Eyes: denies: eye pain, eye discharge, vision change ENT: denies: ear pain, throat pain, dental pain, congestion Respiratory: denies: cough, shortness of breath, wheezing Cardiovascular: denies: chest pain, palpitations, orthopnea, syncope, paroxysmal nocturnal dyspnea Endocrine: no symptoms reported Gastrointestinal: denies: abdominal pain, nausea, vomiting, diarrhea Genitourinary: denies: urgency, dysuria, discharge Musculoskeletal: denies: back pain, joint swelling, arthralgia Skin: denies: rash, lesions Neurological: headache, other (lightheadedness). denies: weakness, paresthesias Psychiatric: denies: anxiety, depression, auditory hallucinations, visual hallucinations, homicidal thoughts, suicidal thoughts Hematological/Lymphatic: denies: easy bleeding, easy bruising ED Past Medical Hx - Past Medical History Hx Hypertension: Yes Hx Psychiatric Treatment: Yes (bipolar) Hx Asthma: Yes Hx COPD: Yes Additional medical history: fibromyalgia. vertigo - Surgical History Past Surgical History?: Yes Additional Surgical History: hysterectomy - Social History Smoking Status: Current Every Day Smoker - Medications Home Medications: Home Medications Medication Instructions Recorded Confirmed Last Taken Type Ibuprofen [Motrin 600 MG tab] 600 mg PO Q8H PRN #15 tablet 01/02/18 12/17/20 Unknown Rx Albuterol Mdi (or & Nicu Only) 2 puff IH QID PRN #8.5 gram 08/15/20 12/17/20 Unknown Rx [ProAir HFA Inhaler] Famotidine [Pepcid] 20 mg PO BID 30 Days #60 tablet 08/19/20 12/17/20 Unknown Rx Furosemide [Lasix] 40 mg PO DAILY #10 tablet 12/04/20 12/17/20 Unknown Rx Lidocaine Viscous 2% 15 ml MM BID PRN #10 udc 12/04/20 12/17/20 Unknown Rx Clindamycin [Clindamycin CAP] 300 mg PO Q6H #40 capsule 01/27/21 Unknown Rx Ketorolac [Toradol] 10 mg PO Q6H PRN #20 tablet 01/27/21 Unknown Rx Meclizine [Antivert] 25 mg PO TID PRN #20 tablet 01/27/21 Unknown Rx Meclizine [Antivert] 25 mg PO TID PRN #30 tablet 02/09/21 Unknown Rx hydrOXYzine PAMOATE [Vistaril] 50 mg PO Q12HR PRN #30 capsule 02/09/21 Unknown Rx ED Physical Exam - General Limitations: No Limitations General appearance: alert, in no apparent distress - Head Head exam: Present: atraumatic, normocephalic, normal inspection - Eye Eye exam: Present: normal appearance, PERRL, EOMI Pupils: Present: normal accommodation - ENT ENT exam: Present: normal exam, normal orophraynx, mucous membranes moist, TM's normal bilaterally, normal external ear exam - Neck Neck exam: Present: normal inspection, full ROM - Respiratory Respiratory exam: Present: normal lung sounds bilaterally. Absent: respiratory distress, wheezes, rales, rhonchi, stridor, chest wall tenderness, accessory muscle use, decreased breath sounds - Cardiovascular Cardiovascular Exam: Present: regular rate, normal rhythm, normal heart sounds. Absent: systolic murmur, diastolic murmur, rubs, gallop - GI/Abdominal GI/Abdominal exam: Present: soft, normal bowel sounds. Absent: tenderness, guarding, rigid, hyperactive bowel sounds, hypoactive bowel sounds, organomegaly - Extremities Exam Extremities exam: Present: normal inspection, full ROM, normal capillary refill - Back Exam Back exam: Present: normal inspection, full ROM. Absent: tenderness, CVA tenderness (R), CVA tenderness (L), muscle spasm, vertebral tenderness - Neurological Exam Neurological exam: Present: alert, oriented X3, CN II-XII intact, normal gait, reflexes normal - Psychiatric Psychiatric exam: Present: normal affect, normal mood, anxious - Skin Skin exam: Present: warm, dry, intact, normal color. Absent: rash ED Course Vital Signs 02/09/21 21:36 Temperature 98.7 F Pulse Rate 82 Respiratory 18 Rate Blood Pressure 134/88 [Left] O2 Sat by Pulse 98 Oximetry ED Medical Decision Making - Medical Decision Making This is a 35-year-old female with a history of hypertension, bipolar disorder, asthma, fibromyalgia, COPD and vertigo who presented to the ED with complaint of persistent lightheadedness and dizziness, elevated blood pressure for the last 2 days. Patient states that she is currently on metoprolol 25 mg daily for her chronic tachycardia. Patient believes that her blood pressure has been elevated although she did not check it at home. In the ED, patient is alert and oriented x3 and is not in any distress. Patient was treated with mec lizine and Vistaril and advised to follow-up with her primary care physician in 7 to 10 days for reevaluation or return to the ED immediately if symptoms get worse. Patient vital signs are stable, blood pressure is normal and patient's oxygen saturation 98% in room air and patient is not suicidal or homicidal at this time. - Differential Diagnosis anxiety; depression; elevated BP Critical care attestation.: If time is entered above; I have spent that time in minutes in the direct care of this critically ill patient, excluding procedure time. ED Disposition Clinical Impression: Anxiety as acute reaction to exceptional stress, Dizziness, psychogenic Disposition: 01 HOME / SELF CARE / HOMELESS Is pt being admited?: No Does the pt Need Aspirin: No Condition: Stable Instructions: Dizziness, [id number] Additional Instructions: Your vital signs are stable including your blood pressure at this time. Therefore continue taking your previously prescribed medications. In addition, take medication with food, drink plenty of fluids and follow-up with your primary care physician in 7- 10 days for reevaluation. Return to the ED immediately if symptoms get worse. Prescriptions: Meclizine [Antivert] 25 mg PO TID PRN #30 tablet PRN Reason: Vertigo hydrOXYzine PAMOATE [Vistaril] 50 mg PO Q12HR PRN #30 capsule PRN Reason: Anxiety Referrals: [facility] [Provider Group] - 3-5 Days Forms: Work/School Release Form(ED) Time of Disposition: 23:43 Print Language: GEORGIAN
[2021-02-09] MEDS ORDERED: hydrOXYzine PAMOATE 25 MG CAP PO ONE (23:48)
[2021-02-09] MEDS ORDERED: MECLIZINE 25 MG TAB PO ONE (23:48)
== END 2021-02-10 00:16 | disposition home or self-care (01) ==
LOC: ED 21:28
DX: F41.1 Generalized anxiety disorder (principal); F43.0 Acute stress reaction; I10 Essential (primary) hypertension; F31.9 Bipolar disorder, unspecified; J44.9 Chronic obstructive pulmonary disease, unspecified; M79.7 Fibromyalgia; F17.200 Nicotine dependence, unspecified, uncomplicated; Z90.710 Acquired absence of both cervix and uterus; Z88.0 Allergy status to penicillin; Z88.8 Allergy status to other drugs, medicaments and biological substances; Z88.2 Allergy status to sulfonamides; Z88.7 Allergy status to serum and vaccine; Z79.899 Other long term (current) drug therapy
CPT/HCPCS: 99283; Q0177; J3490

== ENCOUNTER 2021-02-16 11:38 | Emergency (ER) | payer MEDICAID ==
[2021-02-16] MEDS ORDERED: ONDANSETRON 4 MG/2 ML INJ IV ONE (13:39)
[2021-02-16] MEDS ORDERED: SODIUM CHLORIDE 0.9% 1000 ML 1,000 ML IV ONE (13:39)
--- NOTE | 2021-02-16 13:43 | Emergency Department Report ---
ED Abdominal Pain HPI - General Chief Complaint: Abdominal Pain Stated Complaint: ABD PAIN Time Seen by Provider: 02/16/21 13:37 Source: patient Mode of arrival: Ambulatory Limitations: No Limitations - History of Present Illness Initial Comments: Patient is 35 years old female with history of bipolar disorder and fibromyalgia. Patient also is a cancer survival uterine cancer. Patient presented to the ER complaining of right lower quadrant abdominal pain that is radiating to the whole abdomen. Patient also experiencing nausea, vomiting and watery diarrhea. Patient was seen here 3 days ago for back pain and muscle spasm. Patient denied any fever or chills. MD Complaint: abdominal pain -: days(s) (2) Location: diffuse Radiation: none Migration to: no migration Severity: moderate Consistency: constant Associated Symptoms: nausea, vomiting, diarrhea - Related Data Previous Rx's Medication Instructions Recorded Last Taken Type Ibuprofen [Motrin 600 MG tab] 600 mg PO Q8H PRN #15 tablet 01/02/18 Unknown Rx Albuterol Mdi (or & Nicu Only) 2 puff IH QID PRN #8.5 gram 08/15/20 Unknown Rx [ProAir HFA Inhaler] Famotidine [Pepcid] 20 mg PO BID 30 Days #60 tablet 08/19/20 Unknown Rx Furosemide [Lasix] 40 mg PO DAILY #10 tablet 12/04/20 Unknown Rx Lidocaine Viscous 2% 15 ml MM BID PRN #10 udc 12/04/20 Unknown Rx Clindamycin [Clindamycin CAP] 300 mg PO Q6H #40 capsule 01/27/21 Unknown Rx Ketorolac [Toradol] 10 mg PO Q6H PRN #20 tablet 01/27/21 Unknown Rx Meclizine [Antivert] 25 mg PO TID PRN #20 tablet 01/27/21 Unknown Rx Meclizine [Antivert] 25 mg PO TID PRN #30 tablet 02/09/21 Unknown Rx hydrOXYzine PAMOATE [Vistaril] 50 mg PO Q12HR PRN #30 capsule 02/09/21 Unknown Rx Cetirizine HCl [ZyrTEC 10mg cap] 10 mg PO DAILY #30 capsule 02/12/21 Unknown Rx Fluticasone [Flonase] 2 spray NS QDAY #1 bottle 02/12/21 Unknown Rx Metaxalone [Skelaxin] 800 mg PO TID #30 tablet 02/12/21 Unknown Rx Allergies Allergy/AdvReac Type Severity Reaction Status Date / Time acetaminophen [From [place]] Allergy Anaphylaxis Verified 12/17/20 17:43 hydrocodone [From [place]] Allergy Anaphylaxis Verified 12/17/20 17:43 meperidine [From [place]] Allergy Hives Verified 12/17/20 17:43 Penicillins Allergy Hives Verified 12/17/20 17:43 Sulfa (Sulfonamide Allergy Hives Verified 12/17/20 17:43 Antibiotics) flu vaccine Allergy Hives Uncoded 01/27/21 13:48 ED Review of Systems ROS: Stated complaint: ABD PAIN Other details as noted in HPI Comment: All other systems reviewed and negative Constitutional: denies: chills, fever Respiratory: denies: cough, shortness of breath, SOB with exertion Cardiovascular: denies: chest pain, palpitations Gastrointestinal: abdominal pain, nausea, vomiting, diarrhea Musculoskeletal: denies: back pain Neurological: denies: headache, weakness, numbness, paresthesias, confusion ED Past Medical Hx - Past Medical History Hx Hypertension: Yes Hx Psychiatric Treatment: Yes (bipolar) Hx Asthma: Yes Hx COPD: Yes Additional medical history: fibromyalgia. vertigo - Surgical History Additional Surgical History: hysterectomy - Social History Smoking Status: Current Every Day Smoker - Medications Home Medications: Home Medications Medication Instructions Recorded Confirmed Last Taken Type Ibuprofen [Motrin 600 MG tab] 600 mg PO Q8H PRN #15 tablet 01/02/18 12/17/20 Unknown Rx Albuterol Mdi (or & Nicu Only) 2 puff IH QID PRN #8.5 gram 08/15/20 12/17/20 Unknown Rx [ProAir HFA Inhaler] Famotidine [Pepcid] 20 mg PO BID 30 Days #60 tablet 08/19/20 12/17/20 Unknown Rx Furosemide [Lasix] 40 mg PO DAILY #10 tablet 12/04/20 12/17/20 Unknown Rx Lidocaine Viscous 2% 15 ml MM BID PRN #10 udc 12/04/20 12/17/20 Unknown Rx Clindamycin [Clindamycin CAP] 300 mg PO Q6H #40 capsule 01/27/21 Unknown Rx Ketorolac [Toradol] 10 mg PO Q6H PRN #20 tablet 01/27/21 Unknown Rx Meclizine [Antivert] 25 mg PO TID PRN #20 tablet 01/27/21 Unknown Rx Meclizine [Antivert] 25 mg PO TID PRN #30 tablet 02/09/21 Unknown Rx hydrOXYzine PAMOATE [Vistaril] 50 mg PO Q12HR PRN #30 capsule 02/09/21 Unknown Rx Cetirizine HCl [ZyrTEC 10mg cap] 10 mg PO DAILY #30 capsule 02/12/21 Unknown Rx Fluticasone [Flonase] 2 spray NS QDAY #1 bottle 02/12/21 Unknown Rx Metaxalone [Skelaxin] 800 mg PO TID #30 tablet 02/12/21 Unknown Rx ED Physical Exam - General Limitations: No Limitations General appearance: alert, in no apparent distress - Head Head exam: Present: atraumatic, normocephalic, normal inspection - Eye Eye exam: Present: normal appearance - ENT ENT exam: Present: normal exam, mucous membranes dry - Neck Neck exam: Present: normal inspection, full ROM. Absent: tenderness, meningismus - Respiratory Respiratory exam: Present: normal lung sounds bilaterally - Cardiovascular Cardiovascular Exam: Present: regular rate, normal rhythm, normal heart sounds - GI/Abdominal GI/Abdominal exam: Present: soft, normal bowel sounds. Absent: distended, tenderness, guarding, rebound, rigid, organomegaly, mass, bruit, pulsatile mass, hernia - Extremities Exam Extremities exam: Present: normal inspection, full ROM, normal capillary refill. Absent: tenderness - Back Exam Back exam: Present: normal inspection, full ROM. Absent: CVA tenderness (R), CVA tenderness (L) - Neurological Exam Neurological exam: Present: alert, oriented X3, CN II-XII intact, normal gait, reflexes normal. Absent: motor sensory deficit - Psychiatric Psychiatric exam: Present: normal mood - Skin Skin exam: Present: warm, intact, normal color ED Course Vital Signs 02/16/21 13:32 Temperature 97.9 F Pulse Rate 88 Respiratory 16 Rate Blood Pressure 151/97 [Right] O2 Sat by Pulse 96 Oximetry ED Medical Decision Making - Lab Data Result diagrams: 02/16/21 13:50 02/16/21 13:50 - Radiology Data Radiology results: report reviewed - Medical Decision Making Patient is 35 years old female with history of bipolar disorder and fibromya lgia. Patient also is a cancer survival uterine cancer. Patient presented to the ER complaining of right lower quadrant abdominal pain that is radiating to the whole abdomen. Patient also experiencing nausea, vomiting and watery diarrhea. Patient was seen here 3 days ago for back pain and muscle spasm. Patient denied any fever or chills. Patient received normal saline, Zofran and morphine. Labs reviewed and is unremarkable. CT abdomen and pelvis showed no acute abnormalities. No evidence of appendicitis. Patient given prescription for Bentyl and Zofran advised to follow-up with her primary doctor in the next 2 to 3 days and to return to the ER if she develop any symptoms. Critical care attestation.: If time is entered above; I have spent that time in minutes in the direct care of this critically ill patient, excluding procedure time. ED Disposition Clinical Impression: Acute abdominal pain, Gastroenteritis Disposition: 01 HOME / SELF CARE / HOMELESS Is pt being admited?: No Condition: Stable Instructions: Abdominal Pain (ED), Viral Gastroenteritis, Adult, Abdominal Pain, Adult Referrals: PRIMARY CARE, [Primary Care Provider] - 3-5 Days
[2021-02-16 14:24] LABS: Basophils % (Auto) 0.6 % (0.0-1.8); Eosinophils # (Auto) 0.3 K/mm3 (0.0-0.4); Eosinophils % (Auto) 4.6 % (0.0-4.3); Hematocrit 44.4 % (30.3-42.9); Lymphocytes # (Auto) 2.3 K/mm3 (1.2-5.4); Lymphocytes % (Auto) 33.6 % (13.4-35.0); Mean Corpuscular HGB Conc 32 % (30-34); Mean Corpuscular Volume 94 fl (79-97); Monocytes # (Auto) 0.5 K/mm3 (0.0-0.8); Monocytes % (Auto) 6.6 % (0.0-7.3); Platelet Count 205 K/mm3 (140-440)
[2021-02-16 14:44] LABS: Alanine Aminotransferase 15 units/L (7-56); Albumin 3.6 g/dL (3.9-5); Blood Urea Nitrogen 11 mg/dL (7-17); Calcium 9.2 mg/dL (8.4-10.2); Hemolysis Index 11
[2021-02-16 14:50] LABS: BUN/Creatinine Ratio 22; Bilirubin,Direct < 0.2 mg/dL (0-0.2)
--- NOTE | 2021-02-16 15:45 | Cat Scan Report ---
CT ABDOMEN AND PELVIS WITH CONTRAST HISTORY: Abdominal Pain 100ml of omnipaque 300 given. COMPARISON: 12/17/2020 TECHNIQUE: CT images of the abdomen and pelvis were obtained following administration of intravenous contrast. All CT scans at this location are performed using CT dose reduction for ALARA by means of automated exposure control. CONTRAST: 100 ml of intravenous contrast administered. FINDINGS: Lungs/bones: Lung bases are clear Abdomen/pelvis: There is diffuse fatty infiltration the liver. Otherwise the liver, spleen, adrenal glands, pancreas, gallbladder and upper GI tract appear normal. Appendix appears normal. No bowel obs truction is seen. Small left adnexal cyst. No dominant adenopathy is seen. Mild inflammation surround ing the vaginal cuff is unchanged, nonspecific. Left renal cyst is again noted. Kidneys appear normal . Nonobstructing right renal stones IMPRESSION: 1. No significant interval change since prior examination. 2. Nonobstructing right renal stones Signer Name: Bang Crawford MD Signed: 02/16/2021 3:41 PM Workstation Name: [id number]
[2021-02-16 16:55] VITALS: BP 146/96
== END 2021-02-16 16:53 | disposition home or self-care (01) ==
LOC: ED 11:38
DX: K52.9 Noninfective gastroenteritis and colitis, unspecified (principal); I10 Essential (primary) hypertension; J44.9 Chronic obstructive pulmonary disease, unspecified; M79.7 Fibromyalgia; F17.200 Nicotine dependence, unspecified, uncomplicated; Z88.0 Allergy status to penicillin; Z88.5 Allergy status to narcotic agent; Z88.8 Allergy status to other drugs, medicaments and biological substances; Z79.899 Other long term (current) drug therapy
CPT/HCPCS: 36415; 74177; 80048; 80076; 83690; 85025; 96361; 96374; 99284; J2405; J7030; Q9967; Q0162

== ENCOUNTER 2021-03-09 11:43 | Emergency (ER) | payer MEDICAID ==
[2021-03-09] MEDS ORDERED: KETOROLAC 30 MG/1 ML INJ IM ONE (11:49)
--- NOTE | 2021-03-09 11:51 | Emergency Department Report ---
ED Abdominal Pain HPI - General Stated Complaint: KIDNEY STONES BACK PAIN Time Seen by Provider: 03/09/21 11:48 - History of Present Illness Initial Comments: Patient presents by ambulance secondary to lower abdominal pain and back pain. She states that she think she is passing a kidney stone. She states that her last kidney stone was a couple of months ago. She states that it feels the same. She has been seen here for her kidney stones. She is asking repeatedly for something for pain. She denies trauma. She has no cough or congestion. She does report urinary frequency and urgency. She later reports that she has been sweating a lot despite the cold temperature. She also states that her vaginal area is inflamed because of the frequent urination. Again, she is focused on pain control. This is while she is sitting there and texting on her phone and asking for something to eat and drink. - Related Data Previous Rx's Medication Instructions Recorded Last Taken Type Albuterol Mdi (or & Nicu Only) 2 puff IH QID PRN #8.5 gram 08/15/20 Unknown Rx [ProAir HFA Inhaler] Famotidine [Pepcid] 20 mg PO BID 30 Days #60 tablet 08/19/20 Unknown Rx Furosemide [Lasix] 40 mg PO DAILY #10 tablet 12/04/20 Unknown Rx Lidocaine Viscous 2% 15 ml MM BID PRN #10 udc 12/04/20 Unknown Rx Meclizine [Antivert] 25 mg PO TID PRN #20 tablet 01/27/21 Unknown Rx Meclizine [Antivert] 25 mg PO TID PRN #30 tablet 02/09/21 Unknown Rx hydrOXYzine PAMOATE [Vistaril] 50 mg PO Q12HR PRN #30 capsule 02/09/21 Unknown Rx Cetirizine HCl [ZyrTEC 10mg cap] 10 mg PO DAILY #30 capsule 02/12/21 Unknown Rx Fluticasone [Flonase] 2 spray NS QDAY #1 bottle 02/12/21 Unknown Rx Ondansetron [Zofran Odt] 4 mg PO Q8HR PRN #14 tab.rapdis 02/16/21 Unknown Rx Dicyclomine [Bentyl] 20 mg PO QID #20 tablet 03/09/21 Unknown Rx Ibuprofen [Motrin 600 MG tab] 600 mg PO Q8H PRN #15 tablet 03/09/21 Unknown Rx Allergies Allergy/AdvReac Type Severity Reaction Status Date / Time acetaminophen [From [place]] Allergy Anaphylaxis Verified 12/17/20 17:43 hydrocodone [From [place]] Allergy Anaphylaxis Verified 12/17/20 17:43 meperidine [From [place]] Allergy Hives Verified 12/17/20 17:43 Penicillins Allergy Hives Verified 12/17/20 17:43 Sulfa (Sulfonamide Allergy Hives Verified 12/17/20 17:43 Antibiotics) flu vaccine Allergy Hives Uncoded 01/27/21 13:48 ED Review of Systems ROS: Stated complaint: KIDNEY STONES BACK PAIN Other details as noted in HPI Comment: All other systems reviewed and negative Constitutional: denies: fever Eyes: denies: vision change ENT: denies: throat pain Respiratory: denies: cough Cardiovascular: denies: chest pain Endocrine: denies: unexplained weight loss Gastrointestinal: as per HPI Genitourinary: as per HPI Musculoskeletal: back pain (Lower back) Skin: denies: rash Neurological: denies: headache Hematological/Lymphatic: denies: easy bruising ED Past Medical Hx - Past Medical History Hx Hypertension: Yes Hx Psychiatric Treatment: Yes (bipolar) Hx Asthma: Yes Hx COPD: Yes Additional medical history: fibromyalgia. vertigo - Surgical History Additional Surgical History: hysterectomy - Family History Family history: other (Renal colic) - Social History Smoking Status: Current Every Day Smoker (We discussed tobacco cessation x3 minutes) - Medications Home Medications: Home Medications Medication Instructions Recorded Confirmed Last Taken Type Albuterol Mdi (or & [place]u Only) 2 puff IH QID PRN #8.5 gram 08/15/20 12/17/20 Unknown Rx [ProAir HFA Inhaler] Famotidine [Pepcid] 20 mg PO BID 30 Days #60 tablet 08/19/20 12/17/20 Unknown Rx Furosemide [Lasix] 40 mg PO DAILY #10 tablet 12/04/20 12/17/20 Unknown Rx Lidocaine Viscous 2% 15 ml MM BID PRN #10 udc 12/04/20 12/17/20 Unknown Rx Meclizine [Antivert] 25 mg PO TID PRN #20 tablet 01/27/21 Unknown Rx Meclizine [Antivert] 25 mg PO TID PRN #30 tablet 12/25/21 Unknown Rx hydrOXYzine PAMOATE [Vistaril] 50 mg PO Q12HR PRN #30 capsule 02/09/21 Unknown Rx Cetirizine HCl [ZyrTEC 10mg cap] 10 mg PO DAILY #30 capsule 02/12/21 Unknown Rx Fluticasone [Flonase] 2 spray NS QDAY #1 bottle 02/12/21 Unknown Rx Ondansetron [Zofran Odt] 4 mg PO Q8HR PRN #14 tab.rapdis 02/16/21 Unknown Rx Dicyclomine [Bentyl] 20 mg PO QID #20 tablet 03/09/21 Unknown Rx Ibuprofen [Motrin 600 MG tab] 600 mg PO Q8H PRN #15 tablet 03/09/21 Unknown Rx ED Physical Exam - General Limitations: No Limitations, Other (Pulse ox noted and normal) General appearance: alert, in no apparent distress, other (Patient is sitting calmly in a chair. She does not appear to be in any distress. Patient is not writhing in pain consistent with ureteral colic.) - Head Head exam: Present: atraumatic, normocephalic - Eye Eye exam: Present: normal appearance - ENT ENT exam: Present: normal orophraynx, normal external ear exam - Neck Neck exam: Present: normal inspection. Absent: meningismus - Respiratory Respiratory exam: Present: normal lung sounds bilaterally. Absent: respiratory distress - Cardiovascular Cardiovascular Exam: Present: regular rate, normal rhythm - GI/Abdominal GI/Abdominal exam: Present: soft. Absent: distended, tenderness - Extremities Exam Extremities exam: Present: normal capillary refill - Back Exam Back exam: Present: paraspinal tenderness (Lumbosacral). Absent: CVA tenderness (R), CVA tenderness (L) - Neurological Exam Neurological exam: Present: alert, oriented X3, CN II-XII intact, normal gait. Absent: motor sensory deficit - Psychiatric Psychiatric exam: Present: normal affect, normal mood - Skin Skin exam: Present: warm, dry ED Course Vital Signs 03/09/21 11:55 Temperature 98.2 F Pulse Rate 80 Respiratory 16 Rate Blood Pressure 140/86 [Right] O2 Sat by Pulse 96 Oximetry - Reevaluation(s) Reevaluation #1: 03/09/21 11:50 EMS was met upon arrival. Old labs and records were reviewed. Labs and x-rays were ordered. Reevaluation #2: 03/09/21 15:15 Labs and x-rays were noted. Patient was discharged. ED Medical Decision Making - Lab Data Result diagrams: 03/09/21 12:48 03/09/21 12:48 - Radiology Data Radiology results: report reviewed - Medical Decision Making Patient presents with abdominal pain and back pain. She was reporting pain related to kidney stones, but there is no clinical evidence of ureterolithiasis. She certainly could have renal stones, but does not have any type of ureteral stone causing pain. There is no hematuria suggesting that she is passing a stone. She does not have pyelonephritis. She is not based on the fact that she reports a hysterectomy. Patient was treated empirically with NSAIDs. She will not receive opioid pain medication. Etiology for the pain is not known. She was instructed to drink fluids and to follow-up with her urologist. She was also referred to her PCP for recheck. Critical Care Time: No Critical care attestation.: If time is entered above; I have spent that time in minutes in the direct care of this critically ill patient, excluding procedure time. ED Disposition Clinical Impression: Lower abdominal pain Lower back pain Qualifiers: Chronicity: acute Back pain laterality: bilateral Sciatica presence: without sciatica Qualified Code(s): M54.50 - Low back pain, unspecified Disposition: 01 HOME / SELF CARE / HOMELESS Is pt being admited?: No Condition: Stable Instructions: Abdominal Pain, Adult, [id number], Pain Without a Known Cause Additional Instructions: Drink plenty water. Return for problems. Follow-up with your family doctor or the referral physician. Take your regular home medications. Prescriptions: Dicyclomine [Bentyl] 20 mg PO QID #20 tablet Ibuprofen [Motrin 600 MG tab] 600 mg PO Q8H PRN #15 tablet PRN Reason: Pain Referrals: PRIMARY CAREMD [Primary Care Provider] - 3-5 Days JAZMINE LUNA MD [Staff Physician] - 3-5 Days
[2021-03-09 11:58] VITALS: BP 140/86
--- NOTE | 2021-03-09 12:40 | XRay Report ---
ABDOMEN 3 VIEW(S) INDICATION: abd pain, flank pain, h/o stones. COMPARISON: CT abdomen and pelvis with contrast from 02/16/2021. FINDINGS: Bowel gas pattern: No significant abnormality. Free air: None seen. Stones: None seen. Chest: No acute findings. Additional Findings: Nonobstructive right lower renal pole stones measuring 1-2 mm are unchanged. IMPRESSION: 1. No acute findings. 2. Unchanged small right renal stones. Signer Name: Emerson Celeste MD Signed: 03/09/2021 12:36 PM Workstation Name: [id number]
[2021-03-09 13:15] LABS: Mean Corpuscular HGB Conc 33 % (30-34); Mean Corpuscular Volume 94 fl (79-97); Platelet Count 169 K/mm3 (140-440); Red Blood Count 4.58 M/mm3 (3.65-5.03); Red Cell Distribution Width 13.5 % (13.2-15.2)
[2021-03-09 13:36] LABS: Blood Urea Nitrogen 10 mg/dL (7-17); Calcium 8.6 mg/dL (8.4-10.2); Hemolysis Index 6
[2021-03-09 13:38] LABS: BUN/Creatinine Ratio 17
[2021-03-09 15:12] LABS: Bacteria,Urine 1+ /HPF (Negative); Bilirubin,Urine NEG (Negative); Blood,Urine NEG (Negative); Color,Urine Yellow (Yellow); Mucus,Urine FEW /HPF; Protein,Urine <15 mg/dL mg/dL (Negative); Urobilinogen,Urine < 2.0 mg/dL (<2.0)
== END 2021-03-09 15:33 | disposition home or self-care (01) ==
LOC: ED 11:43
DX: R10.30 Lower abdominal pain, unspecified (principal); M54.50 Low back pain, unspecified; I10 Essential (primary) hypertension; J44.9 Chronic obstructive pulmonary disease, unspecified; J45.909 Unspecified asthma, uncomplicated; F31.9 Bipolar disorder, unspecified; R42 Dizziness and giddiness; F17.200 Nicotine dependence, unspecified, uncomplicated; Z90.710 Acquired absence of both cervix and uterus; Z88.6 Allergy status to analgesic agent; Z88.0 Allergy status to penicillin; Z88.2 Allergy status to sulfonamides; Z88.7 Allergy status to serum and vaccine; Z91.09 Other allergy status, other than to drugs and biological substances; Z79.899 Other long term (current) drug therapy
CPT/HCPCS: 36415; 74022; 80048; 81001; 85027; 96372; 99284; J1885

== ENCOUNTER 2021-04-07 15:53 | Emergency (ER) | payer MEDICAID ==
[2021-04-07 16:29] VITALS: BP 149/106
== END 2021-04-07 18:34 | disposition left against medical advice (07) ==
LOC: ED 15:53
DX: J02.9 Acute pharyngitis, unspecified (principal); Z53.21 Procedure and treatment not carried out due to patient leaving prior to being seen by health care provider

== ENCOUNTER 2021-05-12 09:01 | Emergency (ER) | payer MEDICAID ==
[2021-05-12 09:05] VITALS: BP 180/90
[2021-05-12] MEDS ORDERED: IBUPROFEN 800 MG TAB PO ONE (09:23)
--- NOTE | 2021-05-12 10:02 | XRay Report ---
Left foot 3 views INDICATION: Fifth toe pain FINDINGS: MTP joints and IP joints appear normal. Midfoot alignment appears normal. No acute fracture or dislocation Signer Name: Bang Crawford MD Signed: 05/12/2021 9:57 AM Workstation Name: [email or web address]
--- NOTE | 2021-05-12 10:57 | Emergency Department Report ---
ED Lower Extremity HPI - General Chief Complaint: Extremity Problem,Nontraumatic Stated Complaint: LEFT PINKY TOE PAIN Time Seen by Provider: 05/12/21 09:16 Source: EMS Mode of arrival: Stretcher Limitations: No Limitations - History of Present Illness Initial Comments: This is a 35-year-old female nontoxic, well nourished in appearance, no acute signs of distress presents to the ED with c/o of left fifth toe pain times several days. Patient stated that while walking she accidentally hit the wall. Patient denies any other injuries or trauma. Patient denies any numbness, tingling, fever, chills, nausea, vomiting, chest pain, shortness of breath, headache, stiff neck. Patient denies any joint swelling or joint redness. Patient denies decreased range of motion. Patient stated has decreased gait due to pain. MD Complaint: foot injury -: days(s) Injury: Toes: Left Type of Injury: blunt Severity: mild Severity scale (0 -10): 3 Improves With: immobilization Worsens With: weight bearing, movement, palpation Associated Symptoms: able to partially bear weight. denies: snap/pop sensation, swelling, numbness, tingling, unable to bear weight - Related Data Previous Rx's Medication Instructions Recorded Last Taken Type Albuterol Mdi (or & Nicu Only) 2 puff IH QID PRN #8.5 gram 08/15/20 Unknown Rx [ProAir HFA Inhaler] Famotidine [Pepcid] 20 mg PO BID 30 Days #60 tablet 08/19/20 Unknown Rx Furosemide [Lasix] 40 mg PO DAILY #10 tablet 12/04/20 Unknown Rx Lidocaine Viscous 2% 15 ml MM BID PRN #10 udc 12/04/20 Unknown Rx Meclizine [Antivert] 25 mg PO TID PRN #20 tablet 01/27/21 Unknown Rx Meclizine [Antivert] 25 mg PO TID PRN #30 tablet 02/09/21 Unknown Rx hydrOXYzine PAMOATE [Vistaril] 50 mg PO Q12HR PRN #30 capsule 02/09/21 Unknown Rx Cetirizine HCl [ZyrTEC 10mg cap] 10 mg PO DAILY #30 capsule 02/12/21 Unknown Rx Fluticasone [Flonase] 2 spray NS QDAY #1 bottle 02/12/21 Unknown Rx Ondansetron [Zofran Odt] 4 mg PO Q8HR PRN #14 tab.rapdis 02/16/21 Unknown Rx Dicyclomine [Bentyl] 20 mg PO QID #20 tablet 03/09/21 Unknown Rx Ibuprofen [Motrin 600 MG tab] 600 mg PO Q8H PRN #15 tablet 03/09/21 Unknown Rx Naproxen 500 mg PO Q12H PRN #12 tab 05/12/21 Unknown Rx Allergies Allergy/AdvReac Type Severity Reaction Status Date / Time acetaminophen [From [place]] Allergy Anaphylaxis Verified 05/12/21 09:05 hydrocodone [From [place]] Allergy Anaphylaxis Verified 05/12/21 09:05 meperidine [From Demer[place]] Allergy Hives Verified 05/12/21 09:05 Penicillins Allergy Hives Verified 05/12/21 09:05 Sulfa (Sulfonamide Allergy Hives Verified 05/12/21 09:05 Antibiotics) flu vaccine Allergy Hives Uncoded 05/12/21 09:05 ED Review of Systems ROS: Stated complaint: LEFT PINKY TOE PAIN Other details as noted in HPI Comment: All other systems reviewed and negative Constitutional: denies: chills, fever Eyes: denies: eye pain, eye discharge, vision change ENT: denies: ear pain, throat pain Respiratory: denies: cough, shortness of breath, wheezing Cardiovascular: denies: chest pain, palpitations Endocrine: no symptoms reported Gastrointestinal: denies: abdominal pain, nausea, diarrhea Genitourinary: denies: urgency, dysuria, discharge Musculoskeletal: denies: back pain, joint swelling, arthralgia Skin: denies: rash, lesions Neurological: denies: headache, weakness, paresthesias Psychiatric: denies: anxiety, depression Hematological/Lymphatic: denies: easy bleeding, easy bruising ED Past Medical Hx - Past Medical History Hx Hypertension: Yes Hx Psychiatric Treatment: Yes (bipolar) Hx Asthma: Yes Hx COPD: Yes Additional medical history: fibromyalgia. vertigo - Surgical History Additional Surgical History: hysterectomy - Social History Smoking Status: Current Every Day Smoker (We discussed tobacco cessation x3 minutes) - Medications Home Medications: Home Medications Medication Instructions Recorded Confirmed Last Taken Type Albuterol Mdi (or & Nicu Only) 2 puff IH QID PRN #8.5 gram 08/15/20 12/17/20 Unknown Rx [ProAir HFA Inhaler] Famotidine [Pepcid] 20 mg PO BID 30 Days #60 tablet 08/19/20 12/17/20 Unknown Rx Furosemide [Lasix] 40 mg PO DAILY #10 tablet 12/04/20 12/17/20 Unknown Rx Lidocaine Viscous 2% 15 ml MM BID PRN #10 udc 12/04/20 12/17/20 Unknown Rx Meclizine [Antivert] 25 mg PO TID PRN #20 tablet 01/27/21 Unknown Rx Meclizine [Antivert] 25 mg PO TID PRN #30 tablet 02/09/21 Unknown Rx hydrOXYzine PAMOATE [Vistaril] 50 mg PO Q12HR PRN #30 capsule 02/09/21 Unknown Rx Cetirizine HCl [ZyrTEC 10mg cap] 10 mg PO DAILY #30 capsule 02/12/21 Unknown Rx Fluticasone [Flonase] 2 spray NS QDAY #1 bottle 02/12/21 Unknown Rx Ondansetron [Zofran Odt] 4 mg PO Q8HR PRN #14 tab.rapdis 02/16/21 Unknown Rx Dicyclomine [Bentyl] 20 mg PO QID #20 tablet 03/09/21 Unknown Rx Ibuprofen [Motrin 600 MG tab] 600 mg PO Q8H PRN #15 tablet 03/09/21 Unknown Rx Naproxen 500 mg PO Q12H PRN #12 tab 05/12/21 Unknown Rx ED Physical Exam - General Limitations: No Limitations General appearance: alert, in no apparent distress - Head Head exam: Present: atraumatic, normocephalic - Eye Eye exam: Present: normal appearance - Neck Neck exam: Present: full ROM - Respiratory Respiratory exam: Absent: respiratory distress - Cardiovascular Cardiovascular Exam: Present: regular rate - Extremities Exam Extremities exam: Present: normal inspection, full ROM, tenderness, normal capillary refill. Absent: pedal edema, joint swelling, calf tenderness - Expanded Lower Extremity Exam Left Hip exam: Present: normal inspection, full ROM. Absent: tenderness, swelling Upper Leg exam: Present: normal inspection, full ROM. Absent: tenderness, swelling Knee exam: Present: normal inspection, full ROM. Absent: tenderness, swelling, abrasion Lower Leg exam: Present: normal inspection, full ROM. Absent: tenderness, swelling, Shimon's sign Ankle exam: Present: normal inspection, full ROM. Absent: tenderness, swelling, abrasion, laceration, ecchymosis, deformity, crepidus, dislocation, erythema, anterior draw sign Foot/Toe exam: Present: normal inspection, full ROM, tenderness, ecchymosis. Absent: swelling, abrasion, laceration, deformity, crepidus, dislocation, erythema, amputation, puncture wound, foreign body, calcaneal tenderness, tenderness at base of 5th metatarsal, nail avulsion, subungual hematoma Neuro vascular tendon exam: Present: no vascular compromise Gait: Positive: observed and limited by pain 1 - pain here - Back Exam Back exam: Present: normal inspection, full ROM - Neurological Exam Neurological exam: Present: alert, oriented X3 - Psychiatric Psychiatric exam: Present: normal affect, normal mood - Skin Skin exam: Present: warm, dry, intact, normal color. Absent: rash ED Course Vital Signs 05/12/21 09:03 Temperature 98.7 F Pulse Rate 90 Respiratory 16 Rate Blood Pressure 180/90 [Right] O2 Sat by Pulse 100 Oximetry - Reevaluation(s) Reevaluation #1: 05/12/21 11:00 Patient is speaking in full sentences with no signs of distress noted. ED Lower Extremity MDM - Medical Decision Making This is a 35-year-old female that presents with left toe contusion. Patient is stable and was examined by me. Patient referred to orthopedic for further evaluation and treatment. X-ray has been obtained and dictated by the radiologist. Patient is notified of the x-ray report with noted by the patient. Patient does have normal gait with some tenderness and no joint swelling. No ecchymosis. no joint redness or swelling. Not warm to touch. No signs of cellulites present. Patient was instructed to RICE therapy. Patient received Mo penny for pain. Patient is discharged with Motrin. At time of discharge, the patient does not seem toxic or ill in appearance. No acute signs of distress noted. Patient agrees to discharge treatment plan of care. No further questions noted by the patient. Critical care attestation.: If time is entered above; I have spent that time in minutes in the direct care of this critically ill patient, excluding procedure time. ED Disposition Clinical Impression: Contusion of toe, left Qualifiers: Encounter type: initial encounter Toe: lesser toe Damage to nail status: without damage Qualified Code(s): S90.122A - Contusion of left lesser toe(s) without damage to nail, initial encounter Disposition: HOME / SELF CARE / HOMELESS Is pt being admited?: No Does the pt Need Aspirin: No Condition: Stable Instructions: Contusion, [id number], RICE Therapy for Routine Care of Injuries, [id number] Additional Instructions: Follow-up with a orthopedic doctor in 3-5 days or if symptoms worsen and continue return to emergency room as soon as possible. No physical activity that extremity until cleared by orthopedic doctor Prescriptions: Naproxen 500 mg PO Q12H PRN #12 tab PRN Reason: Pain , Severe (7-10) Referrals: BEE HALL MD [Primary Care Provider] - 3-5 Days ELODIA UNGER MD [Staff Physician] - 3-5 Days Time of Disposition: 11:02
== END 2021-05-12 11:37 | disposition home or self-care (01) ==
LOC: ED 09:01
DX: S90.122A Contusion of left lesser toe(s) without damage to nail, initial encounter (principal); F17.200 Nicotine dependence, unspecified, uncomplicated; I10 Essential (primary) hypertension; J45.909 Unspecified asthma, uncomplicated; Z88.6 Allergy status to analgesic agent; Z88.0 Allergy status to penicillin; Z88.2 Allergy status to sulfonamides; Z88.5 Allergy status to narcotic agent; Z88.7 Allergy status to serum and vaccine; X58.XXXA Exposure to other specified factors, initial encounter; Y93.89 Activity, other specified; Y92.89 Other specified places as the place of occurrence of the external cause; Y99.8 Other external cause status
CPT/HCPCS: 99283

== ENCOUNTER 2021-05-31 14:36 | Emergency (ER) | payer MEDICAID ==
--- NOTE | 2021-05-31 18:43 | Emergency Department Report ---
ED General Adult HPI - General Chief complaint: Chest Pain Stated complaint: CHEST PAIN Source: patient Mode of arrival: Ambulatory Limitations: No Limitations - History of Present Illness Initial comments: 35-year-old female presents to the ED complaining of generalized body ache times several weeks. Patient states she has a history of fibromyalgia hypertension and bipolar. Patient is alert and oriented x3. No acute distress noted. No ill appearance noted. Patient is ambulatory. Patient states that she has been going through a lot of stressful events. She states that she t take tramadol for pain and is currently out of pain medication. Patient is alert and oriented x3 .No acute distress noted .No ill appearance noted Severity scale (0 -10): 0 - Related Data Previous Rx's Medication Instructions Recorded Last Taken Type Albuterol Mdi (or & Nicu Only) 2 puff IH QID PRN #8.5 gram 08/15/20 Unknown Rx [ProAir HFA Inhaler] Famotidine [Pepcid] 20 mg PO BID 30 Days #60 tablet 08/19/20 Unknown Rx Furosemide [Lasix] 40 mg PO DAILY #10 tablet 12/04/20 Unknown Rx Lidocaine Viscous 2% 15 ml MM BID PRN #10 udc 12/04/20 Unknown Rx Meclizine [Antivert] 25 mg PO TID PRN #20 tablet 01/27/21 Unknown Rx Meclizine [Antivert] 25 mg PO TID PRN #30 tablet 02/09/21 Unknown Rx hydrOXYzine PAMOATE [Vistaril] 50 mg PO Q12HR PRN #30 capsule 02/09/21 Unknown Rx Cetirizine HCl [ZyrTEC 10mg cap] 10 mg PO DAILY #30 capsule 02/12/21 Unknown Rx Fluticasone [Flonase] 2 spray NS QDAY #1 bottle 02/12/21 Unknown Rx Ondansetron [Zofran Odt] 4 mg PO Q8HR PRN #14 tab.rapdis 02/16/21 Unknown Rx Dicyclomine [Bentyl] 20 mg PO QID #20 tablet 03/09/21 Unknown Rx Ibuprofen [Motrin 600 MG tab] 600 mg PO Q8H PRN #15 tablet 03/09/21 Unknown Rx Naproxen 500 mg PO Q12H PRN #12 tab 05/12/21 Unknown Rx traMADoL [Ultram] 50 mg PO Q6HR PRN 3 Days #12 tablet 05/31/21 Unknown Rx Allergies Allergy/AdvReac Type Severity Reaction Status Date / Time acetaminophen [From [place]] Allergy Anaphylaxis Verified 05/12/21 09:05 hydrocodone [From [place]] Allergy Anaphylaxis Verified 05/12/21 09:05 meperidine [From Demerol] Allergy Hives Verified 05/12/21 09:05 Penicillins Allergy Hives Verified 05/12/21 09:05 Sulfa (Sulfonamide Allergy Hives Verified 05/12/21 09:05 Antibiotics) flu vaccine Allergy Hives Uncoded 05/12/21 09:05 ED Review of Systems ROS: Stated complaint: CHEST PAIN Other details as noted in HPI Constitutional: denies: chills, fever Eyes: denies: eye pain, eye discharge, vision change ENT: denies: ear pain, throat pain Respiratory: denies: cough, shortness of breath, wheezing Cardiovascular: denies: chest pain, palpitations Endocrine: no symptoms reported Gastrointestinal: denies: abdominal pain, nausea, diarrhea Genitourinary: denies: urgency, dysuria, discharge Musculoskeletal: denies: back pain, joint swelling, arthralgia Skin: denies: rash, lesions Neurological: denies: headache, weakness, paresthesias Psychiatric: denies: anxiety, depression Hematological/Lymphatic: denies: easy bleeding, easy bruising ED Past Medical Hx - Past Medical History Hx Hypertension: Yes Hx Psychiatric Treatment: Yes (bipolar) Hx Asthma: Yes Hx COPD: Yes Additional medical history: fibromyalgia. vertigo - Surgical History Additional Surgical History: hysterectomy - Social History Smoking Status: Current Every Day Smoker (We discussed tobacco cessation x3 minutes) - Medications Home Medications: Home Medications Medication Instructions Recorded Confirmed Last Taken Type Albuterol Mdi (or & Nicu Only) 2 puff IH QID PRN #8.5 gram 08/15/20 12/17/20 Unknown Rx [ProAir HFA Inhaler] Famotidine [Pepcid] 20 mg PO BID 30 Days #60 tablet 08/19/20 12/17/20 Unknown Rx Furosemide [Lasix] 40 mg PO DAILY #10 tablet 12/04/20 12/17/20 Unknown Rx Lidocaine Viscous 2% 15 ml MM BID PRN #10 udc 12/04/20 12/17/20 Unknown Rx Meclizine [Antivert] 25 mg PO TID PRN #20 tablet 01/27/21 Unknown Rx Meclizine [Antivert] 25 mg PO TID PRN #30 tablet 02/09/21 Unknown Rx hydrOXYzine PAMOATE [Vistaril] 50 mg PO Q12HR PRN #30 capsule 02/09/21 Unknown Rx Cetirizine HCl [ZyrTEC 10mg cap] 10 mg PO DAILY #30 capsule 02/12/21 Unknown Rx Fluticasone [Flonase] 2 spray NS QDAY #1 bottle 02/12/21 Unknown Rx Ondansetron [Zofran Odt] 4 mg PO Q8HR PRN #14 tab.rapdis 02/16/21 Unknown Rx Dicyclomine [Bentyl] 20 mg PO QID #20 tablet 03/09/21 Unknown Rx Ibuprofen [Motrin 600 MG tab] 600 mg PO Q8H PRN #15 tablet 03/09/21 Unknown Rx Naproxen 500 mg PO Q12H PRN #12 tab 05/12/21 Unknown Rx traMADoL [Ultram] 50 mg PO Q6HR PRN 3 Days #12 tablet 05/31/21 Unknown Rx ED Physical Exam - General Limitations: No Limitations General appearance: alert, in no apparent distress - Head Head exam: Present: atraumatic, normocephalic - Eye Eye exam: Present: normal appearance - ENT ENT exam: Present: mucous membranes moist - Neck Neck exam: Present: normal inspection - Respiratory Respiratory exam: Present: normal lung sounds bilaterally. Absent: respiratory distress - Cardiovascular Cardiovascular Exam: Present: regular rate, normal rhythm. Absent: systolic murmur, diastolic murmur, rubs, gallop - GI/Abdominal GI/Abdominal exam: Present: soft, normal bowel sounds - Extremities Exam Extremities exam: Present: normal inspection - Back Exam Back exam: Present: normal inspection - Neurological Exam Neurological exam: Present: alert, oriented X3 - Psychiatric Psychiatric exam: Present: normal affect, normal mood - Skin Skin exam: Present: warm, dry, intact, normal color. Absent: rash ED Course Vital Signs 05/31/21 05/31/21 14:52 19:08 Temperature 98.2 F Pulse Rate 77 71 Respiratory 18 18 Rate Blood Pressure 98/55 136/86 [Right] O2 Sat by Pulse 100 100 Oximetry ED Medical Decision Making - Medical Decision Making 35-year-old female presents to the ED complaining of generalized body ache times several weeks. Patient states she has a history of fibromyalgia hypertension and bipolar. Patient is alert and oriented x3. No acute distress noted. No ill appearance noted. Patient is ambulatory. Patient states that she has been going through a lot of stressful events. She states that she take tramadol for pain and is currently out of pain medication. Physical examination is unremarkable Rechecked the patient is resting quietly quietly and comfortable and feeling better. I discussed the results of diagnostic study, my clinical impression and the plan for further treatment with the patient. Patient agrees with plan and discharge at this present time. All question addressed. I have given the patient instruction regarding a diagnosis ,expectation ,follow- up and return precaution. I explained to the patient that emergent condition may arise and to return to the ED for new worsen and any new persisting condition. I have explained the importance of following up with the primary care physician or referral physician listed below has instructed. The patient verbalized understanding of discharge instruction. Critical care attestation.: If time is entered above; I have spent that time in minutes in the direct care of this critically ill patient, excluding procedure time. ED Disposition Clinical Impression: Fibromyalgia Disposition: 01 HOME / SELF CARE / HOMELESS Is pt being admited?: No Does the pt Need Aspirin: No Condition: Stable Instructions: Myofascial Pain Syndrome and Fibromyalgia Additional Instructions: Take medication as prescribed Return to ED for any worsening symptom Prescriptions: traMADoL [Ultram] 50 mg PO Q6HR PRN 3 Days #12 tablet PRN Reason: Pain Referrals: PRIMARY CARE, [Primary Care Provider] - 3-5 Days [facility] [Provider Group] - 3-5 Days Forms: Work/School Release Form(ED)
[2021-05-31 19:09] VITALS: BP 136/86
--- NOTE | 2021-06-03 14:02 | Electrocardiograph Report ---
[facility] Test Date: 2021-05-31 Test Time: 15:05:48 Pat Name: CASSI CAMPOS Department: Room: Gender: F [employer] Supervisor: WILL OLEAB: 1985 Requested By: HERMES SANTOS Order Number: [id number] Reading MD: Javier Allen Measurements Intervals Apollo Rate: 76 P: 68 ND: 186 QRS: 56 QRSD: 102 T: 34 QT: 407 QTc: 457 Interpretive Statements Sinus rhythm Probable left atrial enlargement Compared to ECG 12/10/2020 16:54:32 No significant changes Electronically Signed On 06-03-2021 14:02:23 EDT by Javier Allen
== END 2021-05-31 19:09 | disposition home or self-care (01) ==
LOC: ED 14:36
DX: M79.7 Fibromyalgia (principal); I10 Essential (primary) hypertension; F31.9 Bipolar disorder, unspecified; J44.9 Chronic obstructive pulmonary disease, unspecified; F17.200 Nicotine dependence, unspecified, uncomplicated; Z90.710 Acquired absence of both cervix and uterus; Z88.6 Allergy status to analgesic agent; Z88.0 Allergy status to penicillin; Z88.2 Allergy status to sulfonamides; Z88.7 Allergy status to serum and vaccine; Z79.899 Other long term (current) drug therapy
CPT/HCPCS: 93005; 99282